=== PATIENT | male | born 1935 | race Caucasian/White ===

== ENCOUNTER 2016-09-30 10:52 | Inpatient (IN) | payer MEDICARE, BC ==
[~2016-09-30] VITALS: Ht 180.3 cm; Wt 78.0 kg
[~2016-09-30 10:52] MED LIST: BAYER CHEWABLE81 MG PO; COZAAR100 MG PO; LEVAQUIN500 MG PO; MEGACE40 MG PO; PACERONE200 MG PO
[2016-09-30 12:19] LABS: BASOPHILS 0.1 % (0-2); EOSINOPHILS 0 % (0-7); HEMATOCRIT 38.1 % (42.0-54.0); HEMOGLOBIN 12.3 g/dL (13.5-17.5); IMMATURE GRANULOCYTES 0.2 % (0-5); LYMPHOCYTES 6.8 % (15-50); MCH 31.2 pg (26.0-34.0); MCHC 32.3 g/dL (31.0-37.0); MCV 96.7 fL (80.0-100.0); MEAN PLATELET VOLUME 10.7 fL (7.4-10.4); MONOCYTES 9.4 % (2-11); NEUTROPHILS 83.5 % (40-80); PLATELET COUNT 200 10x3/uL (130-400); RBC 3.94 10x6/uL (4.20-6.10); WBC 15.3 10x3/uL (4.8-10.8)
[2016-09-30 12:26] LABS: ALBUMIN 3.2 g/dL (3.4-5.0); ANION GAP 11.4 mmol/L (8-16); BILIRUBIN - TOTAL 1.09 mg/dL (0.2-1.3); CALCIUM 9.4 mg/dL (8.5-10.1); CARBON DIOXIDE 27.5 mmol/L (21.0-32.0); CREATININE - SERUM 1.2 mg/dL (0.6-1.3); POTASSIUM - SERUM 4.9 mmol/L (3.5-5.1); PROTEIN - SERUM 7.6 g/dL (6.4-8.2)
[2016-09-30 15:28] LABS: APPEARANCE HAZY (CLEAR); BILIRUBIN NEGATIVE (NEGATIVE); COLOR YELLOW (YELLOW); GLUCOSE NEGATIVE (NEGATIVE); KETONE NEGATIVE (NEGATIVE); LEUKOCYTE ESTERASE 2+ (NEGATIVE); NITRITE POSITIVE (NEGATIVE); PROTEIN TRACE mg/dL (NEGATIVE); UROBILINOGEN NORMAL (NORMAL)
[2016-09-30 15:29] LABS: BACTERIA MANY /hpf (NONE SEEN); RED CELLS - URINE 0-5 /hpf (0-5)
--- NOTE | 2016-09-30 21:09 | NUR ---
RECIEVED PT TO FLOOR FROM ED VIA STRETCHER. ACCOMPANIED BY FAMILY AND HOSPITAL STAFF. PT IS ALERT AND ORIENTED AND ABLE TO VERBALIZE NEEDS. IV IS PATENT AND BOLUS GOING FROM ED. PT DENIES ANY PAIN AT THIS TIME. UROSTOMY NOTED TO LUQ. NO NEEDS ARE VERBALIZED AT THIS TIME. PT AND FAMILY ORIENTED TO ROOM AND USE OF CALL LIGHT. WILL CONTINUE TO MONITOR. SIDE RAILS ARE UP X 2. BED IS IN LOWEST POSITION. BED ALARM PLACED ON FOR SAFETY. CALL LIGHT IS WITHIN REACH.
--- NOTE | 2016-09-30 22:11 | NUR ---
ADMIT ASSESSMENT COMPLETED. PT PRIVIDED WITH DRAINAGE BAG FOR UROSTOMY. NO NEEDS ARE VOICED. WILL MONITOR. SIDE RAILS X 2. BED LOW. BED ALARM ON. CALL LIGHT IN REACH.
[2016-10-01] VITALS (7 sets, daily range): BP systolic 109–165; BP diastolic 42–82; Ht 180.3 cm; Wt 78.0 kg
[2016-10-01] MEDS ORDERED: MOBIC7.5 MG PO (06:02)
--- NOTE | 2016-10-01 06:38 | HP ---
PATIENT: LAWSON LA MEDICAL RECORD: [id number] ACCOUNT: [id number] LOCATION:D.[id number] : 37 ADMISSION DATE: 09/30/16 HISTORY AND PHYSICAL EXAMINATION DATE OF ADMISSION: 09/30/2016 CHIEF COMPLAINT: Lethargy. HISTORY OF PRESENT ILLNESS: The patient is an 81-year-old gentleman, who presents accompanied by his to the Emergency Room. The patient's states that last night, he began having fever and chills. He also had decrease in appetite. He awakened this morning, was to be in my office today at 11:00, but states he was too weak to present. He presented to the Emergency Room where he was evaluated by physician instructional support assistant, who found the patient to have pyelonephritis. I felt the patient should be admitted. PAST MEDICAL HISTORY: Significant that he has had arthritis. He has had prostate cancer with prostatectomy. He has had borderline diabetes, hearing loss, hyperlipidemia, hypertension, diabetes, and tachycardia. He has also had bladder cancer with ileostomy. FAMILY HISTORY: Father had malignant lung cancer. Father had diabetes. Daughter had diabetes. Son had heart transplant. Mother of pneumonia in her 80s. SOCIAL HISTORY: The patient was born in [place]. He is . He has worked as repairman in the past. ALLERGIES: He has no known drug allergies. MEDICATIONS: Include aspirin 81 mg once a day, recently treated for urinary tract infection with Macrobid 100 mg b.i.d., losartan 100 mg 1 p.o. daily, Mobic 15 mg p.o. b.i.d., Pacerone 200 mg once a day, vitamin D3 of 2000 international units once a day. REVIEW OF SYSTEMS: CONSTITUTIONAL: He denies any headaches, seizures or syncope. Denies change in visual or auditory acuity. PULMONARY: He has had a cough, but no sputum production. CARDIOVASCULAR: No chest pain, palpitation, PND, or orthopnea. GASTROINTESTINAL: No chronic nausea, vomiting, melena, or hematochezia. GENITOURINARY: No urgency, frequency or dysuria. PHYSICAL EXAMINATION: GENERAL: The patient is accompanied by his . He is alert and oriented times 3. VITAL SIGNS: His temperature is 97, respirations are 19, blood pressure 122/68. HEENT: His head is normocephalic. No lesions. Ears: TMs clear. Eyes: Pupils equal, round and reactive to light. His extraocular movements are intact. His nasal cavity, oral cavity, and oropharynx clear. NECK: Supple. There is no adenopathy. HEART: Has a regular rhythm. No murmurs, gallops or rubs. LUNGS: Clear. ABDOMEN: Soft. Bowel sounds positive. HISTORY AND PHYSICAL [id number] LAWSON LA EXTREMITIES: Lower extremities have no edema. LABORATORY DATA: The patient had a BUN of 14, creatinine is 1.2. His hemoglobin is 12.3, hematocrit is 38.1, and his white blood cell count is elevated at 15,000. His liver function is unremarkable. Urinalysis today shows a pH of 7.0, his specific gravity 1.010, 2+ leukocyte esterase; positive white blood cells in the urine, 10-25 high power field; many bacteria. DIAGNOSTIC DATA: Chest x-ray is unremarkable. ASSESSMENT: Pyelonephritis, history of ileostomy, history of hypertension, and history of bladder cancer. PLAN: The patient will be admitted. Blood cultures will be obtained as well as urine culture. He will be placed on Rocephin 1 g q.24 hours, IV hydration. Continue to evaluate. TRANSINT:[id number] Voice Confirmation ID: [id number] DOCUMENT ID: [id number] DONG CORREIA MD at 0638 CC: [id number] DICTATION DATE: 09/30/16 174 REVIEWER SALES: 09/30/16 2202 ADM [id number] [place] [address]
[2016-10-01 07:06] LABS: BASOPHILS 0 % (0-2); EOSINOPHILS 0 % (0-7); HEMATOCRIT 31.8 % (42.0-54.0); HEMOGLOBIN 10.2 g/dL (13.5-17.5); IMMATURE GRANULOCYTES 0.3 % (0-5); LYMPHOCYTES 6.6 % (15-50); MCH 31.2 pg (26.0-34.0); MCHC 32.1 g/dL (31.0-37.0); MCV 97.2 fL (80.0-100.0); MEAN PLATELET VOLUME 9.7 fL (7.4-10.4); MONOCYTES 8.7 % (2-11); NEUTROPHILS 84.4 % (40-80); RBC 3.27 10x6/uL (4.20-6.10); RDW 14.3 % (11.5-14.5)
[2016-10-01 07:15] LABS: ANION GAP 10.5 mmol/L (8-16); CALCIUM 8.1 mg/dL (8.5-10.1); CARBON DIOXIDE 25.5 mmol/L (21.0-32.0); CREATININE - SERUM 1.1 mg/dL (0.6-1.3)
[2016-10-01 07:22] LABS: PLATELET COUNT 135 10x3/uL (130-400); WBC 10.3 10x3/uL (4.8-10.8)
--- NOTE | 2016-10-01 07:28 | NUR ---
SLEEPING AT THIS TIME WITH RESPIRATIONS EVEN AND NON LABORED. AT BEDSIDE. SRX3 WITH BED LOCKED AND IN LOWEST POSITION. CALL LIGHT IN REACH, WILL CONTINUE WITH PLAN OF CARE.
--- NOTE | 2016-10-01 09:20 | NUR ---
SCHEDULED MEDICATIONS ADMINISTERED AT THIS TIME WITHOUT DIFFICULTY. BLOOD PRESSURE MEDICATION HELD DUE TO DIASTOLIC PRESSURE, SEE FLOWSHEET. AT BEDSIDE. PT ALERT AND ORIENTED. UROSTOMY APPLIANCE IN PLACE AND WITHOUT ISSUE DRAINING TO GRAVITY BAG. CALL LIGHT IN REACH, BED ALARM ON AND SRX2. ASSESSMENT PERFORMED PER FLOWSHEET. WILL CONTINUE WITH PLAN OF CARE.
--- NOTE | 2016-10-01 11:15 | NUR ---
LYING IN BED AT THIS TIME. RESPIRATIONS EVEN AND NON LABORED. DENIES NEEDS AT THIS TIME. AT BEDSIDE AND CALL LIGHT IN REACH. WILL CONTINUE WITH PLAN OF CARE.
--- NOTE | 2016-10-01 12:00 | NUR ---
ASSISTED PT TO RESTROOM X1 ASSIST. SON AND REMAIN AT BEDSIDE. INSTRUCTED THEM TO PULL THE EMERGENCY CORD OR PUSH THE CALL LIGHT WHEN HE WAS FINISHED.
--- NOTE | 2016-10-01 19:20 | NUR ---
RECIEVED SHIFT REPORT. PT IS LYING IN BED. ALERT AND ORIENTED AND ABLE TO VERBALIZE NEEDS. IV IS PATENT AND FLUIDS ARE RUNNING PER ORDER. PT HAS BEEN UP TO THE BATHROOM WITH ASSISTANCE PER FAMILY BUT THEY ALSO STATED HE WAS EXTREMELY WEAK. PT DENIES ANY PAIN AT THIS TIME. UROSTOMY CONNECTED TO DRAINAGE BAG AND STOMA WITHIN NORMAL LIMITS. NO NEEDS ARE VERBALIZED AT THIS TIME. WILL CONTINUE TO MONITOR. FAMILY IS AT THE BEDSIDE. SIDE RAILS ARE UP X 2. BED IS IN LOWEST POSITION. BED ALARM IS ON FOR SAFETY. CALL LIGHT IS WITHIN REACH.
--- NOTE | 2016-10-01 20:09 | NUR ---
SHIFT ASSESSMENT COMPLETED. ANTIBIOTIC HUNG PER ORDER. DENIES NEEDS. WILL MONITOR. SIDE RAILS X 2. BED LOW. BED ALARM ON. CALL LIGHT IN REACH.
[2016-10-02 04:55] LABS: BASOPHILS 0.2 % (0-2); EOSINOPHILS 0.8 % (0-7); HEMATOCRIT 28.6 % (42.0-54.0); HEMOGLOBIN 9.3 g/dL (13.5-17.5); IMMATURE GRANULOCYTES 0.5 % (0-5); LYMPHOCYTES 8.1 % (15-50); MCH 31.3 pg (26.0-34.0); MCHC 32.5 g/dL (31.0-37.0); MCV 96.3 fL (80.0-100.0); MEAN PLATELET VOLUME 10.2 fL (7.4-10.4); NEUTROPHILS 72.4 % (40-80); PLATELET COUNT 155 10x3/uL (130-400); RBC 2.97 10x6/uL (4.20-6.10); RDW 14.4 % (11.5-14.5)
[2016-10-02 05:18] LABS: CALC OSMOLALITY 279 mosm/kg (275-300); CARBON DIOXIDE 24.6 mmol/L (21.0-32.0); CHLORIDE - SERUM 108 mmol/L (98-107); GLUCOSE 109 mg/dL (74-106); POTASSIUM - SERUM 3.5 mmol/L (3.5-5.1); SODIUM 140 mmol/L (136-145); UREA NITROGEN 12 mg/dL (7-18); eGFR NON AFRICAN AMERICAN 76 mL/min (90-120)
--- NOTE | 2016-10-02 08:14 | NUR ---
SCHEDULED MEDICATIONS ADMINISTERED AT THIS TIME WITHOUT DIFFICULTY. ASSESSMENT PERFORMED PER FLOWSHEET. FAMILY AT BEDSIDE. IV TO RIGHT AC PATENT WITH NO S/S OF INFILTRATION PRESENT. CALL LIGHT IN REACH AND UROSTOMY TO GIBSON BAG DRAINING TO GRAVITY. SRX2 WITH BED IN LOWEST POSITION AND WHEELS LOCKED. WILL CONTINUE WITH PLAN OF CARE.
[2016-10-02 08:16] VITALS: BP 150/70
--- NOTE | 2016-10-02 10:30 | NUR ---
DENIES NEEDS AT THIS TIME. CALL LIGHT IN REACH, WILL CONTINUE WITH PLAN OF CARE.
[2016-10-02 12:22] VITALS: BP 152/61
--- NOTE | 2016-10-02 13:20 | NUR ---
PT'S IV TO RIGHT AC LEAKING AROUND INSERTION SITE. IV D/C WITH CATH TIP INTACT. FAMILY AT BEDSIDE, CALL LIGHT IN REACH. WILL CONTINUE WITH PLAN OF CARE.
[2016-10-02 16:31] VITALS: BP 136/70
--- NOTE | 2016-10-02 17:49 | NUR ---
Patient Name: LAWSON LA Admission Status: ER Accout number: [id number] Admission Date: 09-30-2016 : 1935 Admission Diagnosis: Attending: YANIRA Current LOS: 2 Anticipated DC Date: 10-04-2016 Planned Disposition: Home Primary Insurance: MEDICARE A & B Discharge Planning Comments: CM MET WITH PATIENT AND (AUGUSTINE) REGARDING D/C NEEDS AND PLANS. STATED FAMILY WILL DRIVE PATIENT HOME AT DISCHARGE. PATIENT HAS A RAMP TO ENTER HOME AND NO STAIRS INSIDE PER . PATIENT IS INDEPENDENT WITH HIS CARE AND HAS A WALKER, WHEELCHAIR, SHOWER CHAIR, AND BS COMMODE AT HOME. PATIENTS PCP IS DR. CORREIA AND PHARMACY IS [facility] IN [place]. PATIENT HAD [facility] IN THE PAST AND WOULD USE THEM IF NEEDED. CM WILL CONTINUE TO FOLLOW PATIENT WITH D/C NEEDS AND PLANS. PCP DR. BREN HUNT [facility] [phone] AUGUSTINE (SPOUSE) [phone] Reports Analyst: Jennifer Vieyra How many steps to enter\exit or inside your home? RAMP 0 * PCP DR. CORREIA 0 * Pharmacy [facility] IN [place] 0 * Preadmission Environment Home with Family 0 * ADLs Independent 0 * Equipment Bedside Commode Shower Chair Walker Wheelchair 0 * List name and contact numbers for known caregivers / representatives who currently or will assist patient after discharge: AUGUSTINE (SPOUSE) [phone] 0 * Community resources currently utilized None 0 * Additional services required to return to the preadmission environment? Yes 0 * Can the patient safely return to the preadmission environment? Yes 0 * Has this patient been hospitalized within the prior 30 days at any hospital? No 0 Grand Total: 0
--- NOTE | 2016-10-02 19:00 | NUR ---
BEDSIDE REPORT RECEIVED AND CARE OF PT ASSUMED. PT LYING IN SEMI VASQUEZ'S POSITION VISITING WITH FAMILY MEMBERS. IV IN LEFT HAND PATENT WITH D5 NS INFUSING AT 100 ML / HR. UROSTOMY PATENT WITH GIBSON BAG ATTACHED DRAINING TO GRAVITY, WITH YELLOW URINE IN COLLECTION BAG. WILL MONITOR CLOSELY.
--- NOTE | 2016-10-02 19:41 | NUR ---
GAVE HS MEDICATIONS TO INCLUDE VISTARIL PER PRN ORDER FOR ANXIETY. WILL CONTINUE TO MONITOR FOR NEEDS.
[2016-10-02 20:00] VITALS: BP 175/91
[2016-10-03] VITALS: BP 157/65
[2016-10-03 04:00] VITALS: BP 132/57
[2016-10-03 04:46] LABS: BASOPHILS 0.2 % (0-2); EOSINOPHILS 1.6 % (0-7); HEMOGLOBIN 9.4 g/dL (13.5-17.5); IMMATURE GRANULOCYTES 0.7 % (0-5); LYMPHOCYTES 8.9 % (15-50); MCH 31.2 pg (26.0-34.0); MCHC 32.4 g/dL (31.0-37.0); MCV 96.3 fL (80.0-100.0); MEAN PLATELET VOLUME 9.9 fL (7.4-10.4); MONOCYTES 14.3 % (2-11); NEUTROPHILS 74.3 % (40-80); RBC 3.01 10x6/uL (4.20-6.10); RDW 14.3 % (11.5-14.5)
[2016-10-03 04:59] LABS: PLATELET COUNT 192 10x3/uL (130-400); WBC 4.4 10x3/uL (4.8-10.8)
[2016-10-03 05:10] LABS: CALC OSMOLALITY 285 mosm/kg (275-300); CALCIUM 7.9 mg/dL (8.5-10.1); CARBON DIOXIDE 26.1 mmol/L (21.0-32.0); CHLORIDE - SERUM 110 mmol/L (98-107); CREATININE - SERUM 0.9 mg/dL (0.6-1.3); GLUCOSE 100 mg/dL (74-106); POTASSIUM - SERUM 3.2 mmol/L (3.5-5.1); SODIUM 144 mmol/L (136-145); UREA NITROGEN 10 mg/dL (7-18); eGFR NON AFRICAN AMERICAN 86 mL/min (90-120)
[2016-10-03 08:44] VITALS: BP 166/76
--- NOTE | 2016-10-03 09:26 | NUR ---
SCHEDULED MEDICATIONS ADMINISTERD AT THIS TIME WITHOUT ISSUE. AT BEDSIDE. ASSESSMENT PERFORMED PER FLOWSHEET. PT DENIES DISCOMFORT OR ANXIETY AT THIS TIME. IV TO LEFT HAND PATENT WITH NO S/S OF INFILTRATION PRESENT. BED BATH PERFORMED BY TONY SCHNEIDER. CALL LIGHT IN REACH, DENIES NEEDS AT PRESENT TIME. BED ALARM ON AND IN WORKING ORDER.
--- NOTE | 2016-10-03 11:00 | NUR ---
AWAKE AND ALERT. DENIES NEEDS AT THIS TIME. REMAINS AT BEDSIDE AND CALL LIGHT IN REACH, WILL CONTINUE WITH PLAN OF CARE.
[2016-10-03 12:24] VITALS: BP 155/71
--- NOTE | 2016-10-03 12:36 | NUR ---
NUTRITION MONITORING & EVAL CHART REVIEWED, PT TOLERATING REG DIET, 100% INTAKE BREAKFAST. WILL CONTINUE TO PROVIDE DIET, HONOR FOOD PREFERENCES. RD FOLLOWING
--- NOTE | 2016-10-03 13:20 | NUR ---
AMBULATING WITH PHYSICAL THERAPY AT THIS TIME. WILL CONTINUE WITH PLAN OF CARE.
[2016-10-03 16:31] VITALS: BP 148/74
--- NOTE | 2016-10-03 19:00 | NUR ---
BEDSIDE REPORT RECEIVED AND CARE OF PT ASSUMED. PT LYING IN SEMI VASQUEZ'S POSITION VISITING WITH FAMILY MEMBERS. IV IN LEFT HAND PATENT WITH D5 1/2 NS INFUSING AT 100 ML / HR. UROSTOMY DRAINING TO GRAVITY WITH YELLOW URINE IN COLLECTION BAG. WILL MONITOR CLOSLEY FOR NEEDS. CALL LIGHT WITHIN REACH.
[2016-10-03 20:00] VITALS: BP 164/67
--- NOTE | 2016-10-03 20:23 | NUR ---
HS MEDICATIONS GIVEN TO INCLUDE VISTARIL PER REQUEST FOR REST. WILL CONTINUE TO MONITOR FOR NEEDS.
--- NOTE | 2016-10-03 23:41 | NUR ---
PT RESTING QUIETLY ON RIGHT SIDE WITH UNLABORED BREATHING. BED ALARM IN USE. WILL CONTINUE TO MONITOR FOR NEEDS.
[2016-10-04] VITALS: BP 165/73
[2016-10-04 02:59] LABS: BASOPHILS 0.4 % (0-2); EOSINOPHILS 2.7 % (0-7); HEMATOCRIT 28.4 % (42.0-54.0); HEMOGLOBIN 9.1 g/dL (13.5-17.5); IMMATURE GRANULOCYTES 0.9 % (0-5); LYMPHOCYTES 13.2 % (15-50); MCH 30.8 pg (26.0-34.0); MCV 96.3 fL (80.0-100.0); MEAN PLATELET VOLUME 9.8 fL (7.4-10.4); MONOCYTES 12.8 % (2-11); PLATELET COUNT 228 10x3/uL (130-400); RBC 2.95 10x6/uL (4.20-6.10); RDW 14.4 % (11.5-14.5); WBC 4.5 10x3/uL (4.8-10.8)
[2016-10-04 03:18] LABS: CALC OSMOLALITY 285 mosm/kg (275-300); CALCIUM 8.2 mg/dL (8.5-10.1); CARBON DIOXIDE 27.9 mmol/L (21.0-32.0); CHLORIDE - SERUM 111 mmol/L (98-107); GLUCOSE 99 mg/dL (74-106); POTASSIUM - SERUM 3.5 mmol/L (3.5-5.1); SODIUM 144 mmol/L (136-145); UREA NITROGEN 10 mg/dL (7-18); eGFR NON AFRICAN AMERICAN 76 mL/min (90-120)
[2016-10-04 04:00] VITALS: BP 161/75
[2016-10-04] MEDS ORDERED: AMOXICILLIN500 M1 PO (07:42)
--- NOTE | 2016-10-04 08:00 | NUR ---
AWAKE AND ALERT. ORIENTED X3. NO C/O AT THIS TIME. LUNGS ARE CLEAR BUT DIMINISHED THROUGHOUT. PRODUCTIVE COUGH NOTED PER FAMILY WITH CLEAR SPUTUM. SKIN IS INTACT WITHOUT REDNESS. IV TO LEFT HAND PATENT WITHOUT REDNESS AT INSERTION SITE. UROSTOMY PATENT WITHOUCLEAR YELLOW URINE. DENIES NEEDS.
--- NOTE | 2016-10-04 08:26 | NUR ---
CM REASSESSMENT NOTE: PATIENT IS DISCHARGING TODAY-FAMILY DRIVING HIM HOME. PATIENT AND FAMILY CHOSE [facility] AND SIGNED THE GIORGIO FORM. CM FAXING REFERRAL. PATIENT HAD NO OTHER NEEDS FOR DISCHARGE. D/C IMM SERVED
[2016-10-04 09:04] VITALS: BP 189/75
--- NOTE | 2016-10-04 09:30 | NUR ---
IV LEAKING AT THIS TIME. D/C WITH CATHETER INTACT.
--- NOTE | 2016-10-04 11:21 | NUR ---
DISCHARGED TO HOME AMBULATORY WITH FAMILY. DISCHARGE INSTRUCTIONS GIVEN BOTH VERBALLY AND WRITTEN. ALL QUESTIONS ANSWERED. PATIENT AND VERBALIZED UNDERSTANDING OF SAME. NEW PRESCRIPTIONS EFAXED TO PHARMACY OF CHOICE.
== END 2016-10-04 11:20 | disposition home or self-care (01) | DRG 690 ==
LOC: D.ER 10:52 → D.MS 17:51 → OBSVTIME 17:51 → D.SDCHOLD 17:51 → D.ER 17:51 → D.MS 18:36
PROVIDERS: Emergency Medicine; ADMIT Family Medicine
DX: N12 Tubulo-interstitial nephritis, not specified as acute or chronic (principal); E78.5 Hyperlipidemia, unspecified; I10 Essential (primary) hypertension; Z85.46 Personal history of malignant neoplasm of prostate; E11.9 Type 2 diabetes mellitus without complications

== ENCOUNTER 2016-12-07 16:17 | Inpatient (IN) | payer MEDICARE, BC ==
[~2016-12-07] VITALS: Ht 180.3 cm; Wt 77.3 kg
[~2016-12-07 16:17] MED LIST changes: +AMOXICILLIN500 M1 PO; +MOBIC7.5 MG PO
[2016-12-07 16:50] LABS: APPEARANCE TURBID (CLEAR); BACTERIA MANY /hpf (NONE SEEN); BILIRUBIN NEGATIVE (NEGATIVE); COLOR YELLOW (YELLOW); EPITHELIAL CELLS 0-5 /hpf (0-5); GLUCOSE NEGATIVE (NEGATIVE); KETONE NEGATIVE (NEGATIVE); LEUKOCYTE ESTERASE 2+ (NEGATIVE); MUCUS <1+ /lpf (NONE SEEN); NITRITE NEGATIVE (NEGATIVE); PROTEIN 1+ mg/dL (NEGATIVE); UROBILINOGEN NORMAL (NORMAL); WHITE CELLS - URINE >50 /hpf (0-5)
[2016-12-07 16:53] LABS: BASOPHILS 0.2 % (0-2); EOSINOPHILS 0.5 % (0-7); HEMATOCRIT 32.3 % (42.0-54.0); HEMOGLOBIN 10.5 g/dL (13.5-17.5); IMMATURE GRANULOCYTES 0.5 % (0-5); MCH 30.4 pg (26.0-34.0); MCHC 32.5 g/dL (31.0-37.0); MCV 93.6 fL (80.0-100.0); MEAN PLATELET VOLUME 9.5 fL (7.4-10.4); NEUTROPHILS 77.8 % (40-80); PLATELET COUNT 241 10x3/uL (130-400); RBC 3.45 10x6/uL (4.20-6.10); RDW 13.8 % (11.5-14.5)
[2016-12-07 17:05] LABS: ALBUMIN 2.8 g/dL (3.4-5.0); ANION GAP 16.1 mmol/L (8-16); BILIRUBIN - TOTAL 0.5 mg/dL (0.2-1.3); CALCIUM 9.2 mg/dL (8.5-10.1); CARBON DIOXIDE 23.4 mmol/L (21.0-32.0); CREATININE - SERUM 1.4 mg/dL (0.6-1.3); POTASSIUM - SERUM 4.5 mmol/L (3.5-5.1); PROTEIN - SERUM 7.3 g/dL (6.4-8.2)
[2016-12-07] MEDS ORDERED: NORVASC5 MG PO (19:46)
[2016-12-07 20:00] VITALS: BP 147/66
--- NOTE | 2016-12-07 20:20 | NUR ---
REC'D PT TO ROOM 2134 ACCOMPAINED BY ER STAFF AND FAMILY. AWAKE AND ALERT. RESP EVEN AND UNLABORED WITH NO DISTRESS NOTED. CAN VOICE NEEDS AND WANTS. PT IS [place]. DENIES ANY PAIN OR DISCOMFORT AT THIS TIME. HAS IV NOTED TO LEFT AC. ASSESSMENT COMPLETED. FAMILY AND C/L IN REACH AT BEDSIDE.
--- NOTE | 2016-12-08 | NUR ---
REST WELL THROUGH OUT THE NIGHT WITH NO C/O NOTED OR VOICED. C/L IN REACH AT BEDSIDE.
--- NOTE | 2016-12-08 02:16 | NUR ---
PT LYING IN BED, EYES CLOSED, RESPIRATIONS EVEN AND UNLABORED. I AGREE WITH PHYSICIAN PRACTICE MANAGER'S PLAN OF CARE. CONTINUE TO MONITOR CLOSELY.
[2016-12-08 04:00] VITALS: BP 133/79
[2016-12-08 05:28] VITALS: Ht 180.3 cm; Wt 77.3 kg
--- NOTE | 2016-12-08 07:28 | NUR ---
AM ROUNDING DONE WITH PATIENT LAYING ON BACK AT 10 DEGREES, APPEARING TO BE ASLEEP. RESP ARE EVEN AND NON LABORED. CIERRA ALARM ON AND IN USE. ON ROOM AIR. LEFT AC SEEN WITH NS INFUSING AT 150 CC/HR. WILL CPOC.
[2016-12-08 08:38] VITALS: BP 125/71
--- NOTE | 2016-12-08 08:51 | NUR ---
DR MORALES HERE TO SEE PATIENT AND FEMALE MEMBER IN ROOM. IV FLUIDS DECREASED TO 75 CC/HR ORDERED. PATIENT DENIES ANY NEEDS.
[2016-12-08 12:36] VITALS: BP 120/66
--- NOTE | 2016-12-08 14:19 | NUR ---
URINE SENT TO LAB ORDERED.
[2016-12-08 14:27] LABS: APPEARANCE CLEAR (CLEAR); BACTERIA MODERATE /hpf (NONE SEEN); BILIRUBIN NEGATIVE (NEGATIVE); COLOR YELLOW (YELLOW); EPITHELIAL CELLS 0-5 /hpf (0-5); GLUCOSE NEGATIVE (NEGATIVE); KETONE NEGATIVE (NEGATIVE); LEUKOCYTE ESTERASE 1+ (NEGATIVE); NITRITE NEGATIVE (NEGATIVE); PROTEIN NEGATIVE (NEGATIVE); UROBILINOGEN NORMAL (NORMAL)
--- NOTE | 2016-12-08 15:41 | NUR ---
BILATERAL SCD'S PLACED ON ORDERED.
[2016-12-08 16:23] VITALS: BP 128/74
[2016-12-08 20:00] VITALS: BP 116/65
--- NOTE | 2016-12-09 03:12 | NUR ---
CALL LIGHT IN REACH, WILL CONTINUE WITH PLAN OF CARE.
[2016-12-09 04:00] VITALS: BP 159/85
[2016-12-09 05:00] LABS: BASOPHILS 0.1 % (0-2); EOSINOPHILS 0.4 % (0-7); HEMOGLOBIN 10.1 g/dL (13.5-17.5); IMMATURE GRANULOCYTES 0.6 % (0-5); LYMPHOCYTES 4.2 % (15-50); MCHC 32.6 g/dL (31.0-37.0); MCV 95.1 fL (80.0-100.0); MONOCYTES 13.6 % (2-11); NEUTROPHILS 81.1 % (40-80); PLATELET COUNT 232 10x3/uL (130-400); RBC 3.26 10x6/uL (4.20-6.10); WBC 11.2 10x3/uL (4.8-10.8)
[2016-12-09 05:16] LABS: ALBUMIN 2.3 g/dL (3.4-5.0); ANION GAP 13.4 mmol/L (8-16); BILIRUBIN - TOTAL 0.3 mg/dL (0.2-1.3); CALCIUM 8.7 mg/dL (8.5-10.1); CARBON DIOXIDE 23.5 mmol/L (21.0-32.0); CREATININE - SERUM 1.1 mg/dL (0.6-1.3); POTASSIUM - SERUM 3.9 mmol/L (3.5-5.1); PROTEIN - SERUM 5.7 g/dL (6.4-8.2)
--- NOTE | 2016-12-09 07:10 | NUR ---
AM ROUNDS - PT RESTING QUIETLY, FAMILY AT BEDSIDE. RR EVEN AND UNLABORED, FAMIY AND PT DENY NEEDS AT THIS TIME. INTRODUCED SELF AND PLACE NAME ON WHITE BOARD. BED IN LOWEST POSTION, CALL YOUNG IN REACH, WILL CTM.
[2016-12-09 08:00] VITALS: BP 129/68
--- NOTE | 2016-12-09 10:07 | NUR ---
REHAB PRESCREENING Rehab referral received and chart reveiwed. We will continue to follow this patient for PT evaluation. Thank you for this referral! Oma Green, LINER REPLACER Rehab Dental Prosthetist
--- NOTE | 2016-12-09 10:48 | NUR ---
ASSESSMENT COMPELTE, A&O, RESPERATONS EVEN ON RA. PT VERY H.O.H. IV TO LEFT AC WITH NS INFUSING AT 75 CC/HR. SITE CLEAN AND DRY. RIGHT SIDE UROSTOMY DRAINING TO GIBSON BAG. PT DENIES PAIN OR NEEDS, BED LOW, CL IN REACH.
[2016-12-09 12:00] VITALS: BP 117/63
[2016-12-09 16:41] VITALS: BP 128/62
--- NOTE | 2016-12-09 17:12 | NUR ---
Patient Name: LAWSON LA Encounter No: [id number] : 1935 Primary Insurance: MEDICARE A & B Anticipated DC Date: 12-10-2016 Planned Disposition: Home with Home Health External Planned Provider: [facility] DISCHARGE PLANNING NOTE: * Is the patient Alert and Oriented? Yes 0 * How many steps to enter\exit or inside your home? RAMP 0 * PCP DR. CORREIA 0 * Pharmacy [facility] [place] 0 * Preadmission Environment Home with Family 0 * ADLs Partial Dependent 0 * Partial ADLs (Assistance needed) Medication Management 0 * Equipment Rolling Walker Wheelchair 0 * Other Equipment NO MEDICAL EQUIPMENT PROVIDER PREFERENCE 0 * List name and contact numbers for known caregivers / representatives who currently or will assist patient after discharge: AUGUSTINE LA, SPOUSE, 0 * Community resources currently utilized Home Health 0 * Please name any agencies selected above. [facility] 0 * Additional services required to return to the preadmission environment? Yes * Can the patient safely return to the preadmission environment? Yes 0 * Has this patient been hospitalized within the prior 30 days at any hospital? Yes 0 CM MET WITH PT, SPOUSE AND ADULT CHILDREN IN ROOM TO DISCUSS DISCHARGE PLANNING AND NEEDS. PT REPORTS LIVING AT HOME INDEPENDENTLY WITH SPOUSE; PT'S SPOUSE REPORTS SHE ARRANGES PT'S MEDICATIONS IN PILL MINDER FOR PT. PT HAS ROLLING WALKER AND WHEELCHAIR WITH NO MEDICAL EQUIPMENT PROVIDER PREFERENCE. PT HAS [facility] FOR NURSING, WAS JUST DISCHARGED BY THE HOME THERAPIST PRIOR TO HOSPITALIZATION. CM DISCUSSED AVAILABILITY OF HOME HEALTH, REHAB SERVICES AND MEDICAL EQUIPMENT. PT REPORTS HE WILL NOT GO TO REHAB. CM DISCUSSED INPATIENT REHAB, PT DOES NOT WANT EVALUATED AND DOES NOT WANT TO SPEAK TO ANYONE FROM REHAB. CM DISCUSSED [facility], PT REFUSED. PT WILL ACCEPT [facility]. PT'S SPOUSE REPORTS SHE WILL PICK PT FOR DISCHARGE HOME. PT'S SPOUSE REPORTS PT NORMALLY GOES HOME AND USES WHEELCHAIR TO GET AROUND THE HOUSE AFTER HOSPITALIZATION AND AFTER A COUPLE OF WEEKS TRANSITIONS TO THE WALKER WITH WHEELS AND SEAT. CM PROVIDED CM CONTACT INFORMATION TO PT AND FAMILY IN CASE PT CHANGES MIND IN REGARDS TO GOING TO REHAB PRIOR TO RETURNING HOME. IMPORTANT MESSAGE FROM MEDICARE PROVIDED AND DISCUSSED. PT REFUSES REHAB SERVICES INPATIENT OR [facility]. PT WILL ACCEPT HOME HEALTH. DENIES FURTHER NEEDS AT THIS TIME. CM TO RESUME HOME HEALTH WITH [facility] FOR DISCHARGE HOME, CALL [facility] AT [phone], FAX DISCHARGE INFORMATION TO [facility] AT [phone]. Mitchell Valenzuela, CASE MANAGEMENT
--- NOTE | 2016-12-09 18:33 | NUR ---
PT RESTING QUIETLY, FAMILY AT BEDSIDE. DENIES NEEDS AT THIS TIME. WILL GIVE REPORT ON PT CONDITION FOR THE DAY.
--- NOTE | 2016-12-09 19:48 | NUR ---
ASSESSMENT COMPELTE, A&O. RESPERATIONS EVEN ON RA. PT VERY H.O.H. IV TO LEFT AC WITH NS INFUSING AT 75 CC/HR. SITE CLEAN AND DRY. RIGHT UROSTOMY DRAINING TO GIBSON BAG. SCDS IN PLACE TO BILATERAL LOWER EXTREMITES. PT DENIES PAIN OR NEEDS, BED LOW, CL IN REACH.
[2016-12-09 20:00] VITALS: BP 135/663; BP 149/71
--- NOTE | 2016-12-09 21:20 | NUR ---
RESPOSTIONED IN BED FOR COMFORT, BED LOW, CL IN REACH.
[2016-12-10] VITALS: BP 149/71
--- NOTE | 2016-12-10 00:33 | NUR ---
SCRUBBER SYSTEM ATTENDANT AT BEDSIDE TO OBTAIN VITALS, CALL LIGHT IN REACH. WILL CONTINUE WITH PLAN OF CARE.
--- NOTE | 2016-12-10 00:33 | NUR ---
SKIRT CLIPPER AT BEDSIDE TO OBTAIN VITALS, CALL LIGHT IN REACH. WILL CONTINUE WITH PLAN OF CARE.
--- NOTE | 2016-12-10 02:01 | NUR ---
SECOND IV SITED TO LEFT FOREARM, 22 GAUGE, FIRST ATTEMPT, PT TOLERATED WELL. IV TO LEFT AC INTACT, PT KEEPS BENDING ARM WHILE ASLEEP AND IV PUMP ALARMS PT SIDE OCCLUDED.
[2016-12-10 04:00] VITALS: BP 161/69
[2016-12-10 04:13] LABS: BASOPHILS 0.2 % (0-2); EOSINOPHILS 1.3 % (0-7); HEMATOCRIT 28.6 % (42.0-54.0); HEMOGLOBIN 9.3 g/dL (13.5-17.5); IMMATURE GRANULOCYTES 0.6 % (0-5); LYMPHOCYTES 9.6 % (15-50); MCH 30.4 pg (26.0-34.0); MCHC 32.5 g/dL (31.0-37.0); MCV 93.5 fL (80.0-100.0); MEAN PLATELET VOLUME 9.8 fL (7.4-10.4); MONOCYTES 12.6 % (2-11); NEUTROPHILS 75.7 % (40-80); PLATELET COUNT 248 10x3/uL (130-400); RBC 3.06 10x6/uL (4.20-6.10)
[2016-12-10 04:15] LABS: WBC 6.3 10x3/uL (4.8-10.8)
[2016-12-10 04:23] LABS: CALC OSMOLALITY 278 mosm/kg (275-300); CALCIUM 8.1 mg/dL (8.5-10.1); CARBON DIOXIDE 22.7 mmol/L (21.0-32.0); CHLORIDE - SERUM 108 mmol/L (98-107); GLUCOSE 91 mg/dL (74-106); POTASSIUM - SERUM 3.6 mmol/L (3.5-5.1); SODIUM 139 mmol/L (136-145); eGFR NON AFRICAN AMERICAN 76 mL/min (90-120)
[2016-12-10 04:24] LABS: UREA NITROGEN 14 mg/dL (7-18)
--- NOTE | 2016-12-10 11:10 | NUR ---
Rehab Note- Spoke with the patient's due to the patient resting comfortably. Stated that the patient is adamant about discharging home with [facility] and not doing acute rehab stay. Informed that if patient is unable to well at home after discharge that the patient could be evaluated from home for an IRF stay. Spoke with MARINO Trujillo and informed him of conversation with . Thank you for this referral! Jaleesa Staton RN Clinical Liaison, [facility] Rehab
[2016-12-10 13:08] VITALS: BP 161/70
[2016-12-10 13:09] VITALS: BP 162/66
--- NOTE | 2016-12-10 13:10 | NUR ---
THIS AM PATIENT HAS BEEN VISITING WITH FAMILY. HAS HAD A VERY LARGE BM. UREOSTOMY DRAINING WELL WITH CONCENTRATED URINE. SCDS ON AND REMOVED FOR SKIN ASSESSMENT. CIERRA PAD ON AND ALARM ON. WILL CONTINUE TO MONITOR.
[2016-12-10 16:30] VITALS: BP 156/60
--- NOTE | 2016-12-10 19:30 | NUR ---
ALERT/AWAKE WATCHING TV. IV IN L FA WITH NS INFUSING AT 75ML/HR. HAS A UROSTOMY ON RIGHT SIDE DRAINING INTO GIBSON BAG. SCD'S ARE ON. ORIENTED TO CALL LIGHT FOR ANY NEEDS.
[2016-12-10 20:00] VITALS: BP 151/64
--- NOTE | 2016-12-11 03:30 | NUR ---
VENEER JOINTER PRESENT IN ROOM TAKING VS. REQUESTED MORE ICE WATER. DENIES ANY DISCOMFORTS.
[2016-12-11 04:00] VITALS: BP 176/74
[2016-12-11 04:57] LABS: BASOPHILS 0.2 % (0-2); EOSINOPHILS 1.9 % (0-7); HEMATOCRIT 27.2 % (42.0-54.0); HEMOGLOBIN 8.8 g/dL (13.5-17.5); IMMATURE GRANULOCYTES 0.9 % (0-5); LYMPHOCYTES 6.3 % (15-50); MCH 30.6 pg (26.0-34.0); MCHC 32.4 g/dL (31.0-37.0); MCV 94.4 fL (80.0-100.0); MEAN PLATELET VOLUME 9.2 fL (7.4-10.4); MONOCYTES 16.7 % (2-11); PLATELET COUNT 235 10x3/uL (130-400); RBC 2.88 10x6/uL (4.20-6.10)
[2016-12-11 04:59] LABS: WBC 4.3 10x3/uL (4.8-10.8)
[2016-12-11 05:17] LABS: CALC OSMOLALITY 283 mosm/kg (275-300); CALCIUM 8.3 mg/dL (8.5-10.1); CARBON DIOXIDE 22.3 mmol/L (21.0-32.0); CHLORIDE - SERUM 111 mmol/L (98-107); CREATININE - SERUM 0.9 mg/dL (0.6-1.3); GLUCOSE 93 mg/dL (74-106); POTASSIUM - SERUM 3.7 mmol/L (3.5-5.1); SODIUM 143 mmol/L (136-145); UREA NITROGEN 11 mg/dL (7-18); eGFR NON AFRICAN AMERICAN 86 mL/min (90-120)
[2016-12-11] MEDS ORDERED: PROTONIX40 MG PO (07:01)
[2016-12-11] MEDS ORDERED: LEVAQUIN750 MG PO (07:01)
--- NOTE | 2016-12-11 07:55 | NUR ---
AM ROUNDS - PT IS AWAKE IN BED WITH IV TO LEFT FA, NE AT 75CC/HR. SCDS ON, YELLOW BAND ON, SIDE RAILS UP X2. BED IN LOWEST POSITION. PT IS ON RA. HARD OF HEARING. NO NEEDS AT THIS TIME. WILL CONTINUE TO MONITOR
--- NOTE | 2016-12-11 09:43 | NUR ---
Patient Name: LAWSON LA Encounter No: [id number] : 1935 Primary Insurance: MEDICARE A & B Anticipated DC Date: 12-11-2016 Planned Disposition: Home with Home Health External Planned Provider: [facility] DCP follow-up note: CM RECEIVED DISCHARGE ORDER, SPOKE TO PT AND SPOUSE IN ROOM; CM OFFERED REHAB SERVICES TO PT WHO AGAIN REFUSED, REPORTS HE IS GOING HOME. PT WILL ACCEPT HOME HEALTH. PT'S SPOUSE IN AGREEMENT WITH DISCHARGE PLAN FOR HOME HEALTH AND GOING HOME TODAY. FAMILY HERE TO TRANSPORT PT HOME AT DISCHARGE. MARINO CALLED [facility] AT [phone], SPOKE TO [facility] WHO REPORTS THEY WILL HAVE TO READMIT PT TOMORROW, CM FAXED DISCHARGE INFORMATION TO [facility] AT [phone]. PT AND SPOUSE NOTIFIED. Mitchell Valenzuela, CASE MANAGEMENT
[2016-12-11 10:02] VITALS: BP 182/74
--- NOTE | 2016-12-11 10:36 | NUR ---
MORNING MEDICATION GIVEN. PT TOLERATED WELL. WILL CONTINUE TO MONITOR
== END 2016-12-11 11:25 | disposition home health service (06) | DRG 690 ==
LOC: D.ER 16:17 → D.M2 17:34
PROVIDERS: Family Medicine; ADMIT Family Medicine
DX: N39.0 Urinary tract infection, site not specified (principal); Z86.73 Personal history of transient ischemic attack (TIA), and cerebral infarction without residual deficits; I10 Essential (primary) hypertension; I48.91 Unspecified atrial fibrillation; Z87.891 Personal history of nicotine dependence

== ENCOUNTER 2017-01-18 11:43 | Inpatient (IN) | payer MEDICARE, BC ==
[~2017-01-18] VITALS: Ht 180.3 cm; Wt 74.8 kg
[~2017-01-18 11:43] MED LIST changes: +LEVAQUIN750 MG PO; +NORVASC5 MG PO; +PROTONIX40 MG PO
[2017-01-18 12:10] LABS: APPEARANCE CLOUDY (CLEAR); BILIRUBIN 1+ (NEGATIVE); COLOR YELLOW (YELLOW); GLUCOSE NEGATIVE (NEGATIVE); KETONE NEGATIVE (NEGATIVE); LEUKOCYTE ESTERASE TRACE (NEGATIVE); NITRITE NEGATIVE (NEGATIVE); PROTEIN TRACE mg/dL (NEGATIVE); UROBILINOGEN NORMAL (NORMAL)
[2017-01-18 12:10] LABS: BASOPHILS 0 % (0-2); EOSINOPHILS 0.1 % (0-7); HEMATOCRIT 31.6 % (42.0-54.0); HEMOGLOBIN 10.5 g/dL (13.5-17.5); IMMATURE GRANULOCYTES 0.4 % (0-5); LYMPHOCYTES 1.5 % (15-50); MCHC 33.2 g/dL (31.0-37.0); MCV 93.2 fL (80.0-100.0); MEAN PLATELET VOLUME 9.6 fL (7.4-10.4); MONOCYTES 10.4 % (2-11); NEUTROPHILS 87.6 % (40-80); PLATELET COUNT 139 10x3/uL (130-400); RBC 3.39 10x6/uL (4.20-6.10); RDW 14.6 % (11.5-14.5)
[2017-01-18 12:14] LABS: AMORPHOUS SEDIMENT <1+ /lpf (NONE SEEN); BACTERIA MANY /hpf (NONE SEEN); EPITHELIAL CELLS 0-5 /hpf (0-5); HYALINE CAST OCC /lpf (NONE SEEN); RED CELLS - URINE 0-5 /hpf (0-5); YEAST >1+ WITH HYPHAE /hpf (NONE SEEN)
[2017-01-18 12:20] LABS: ALBUMIN 2.6 g/dL (3.4-5.0); BILIRUBIN - TOTAL 0.6 mg/dL (0.2-1.3); CALCIUM 8.5 mg/dL (8.5-10.1); CARBON DIOXIDE 23.7 mmol/L (21.0-32.0); CREATININE - SERUM 1.4 mg/dL (0.6-1.3); POTASSIUM - SERUM 3.7 mmol/L (3.5-5.1); PROTEIN - SERUM 6.6 g/dL (6.4-8.2)
--- NOTE | 2017-01-18 14:40 | NUR ---
PATIENT TO ROOM AT THIS TIME. IV INTACT. NO COMPLAINTS. CALL LIGHT WITHIN REACH. FAMILY AT BEDSIDE.
[2017-01-18 15:41] VITALS: BMI 23.0
[2017-01-18] MEDS ORDERED: BACTRIM DS TABL1 TAB PO (16:09)
[2017-01-18] MEDS ORDERED: FERROUS SULFAT325 MG PO (16:11)
--- NOTE | 2017-01-18 16:30 | NUR ---
PATIENT IN BED WITH EYES CLOSED RESTING QUIETLY AT THIS TIME. NO COMPLAINTS OR SIGNS OF DISTRESS. NEPHROSTOMY INTACT. CALL LIGHT WITHIN REACH. FAMILY AT BEDSIDE.
--- NOTE | 2017-01-18 17:15 | NUR ---
PATIENT SITTING UP IN BED EATING ASSISTED BY . NO COMPLAINTS OR SIGNS OF DISTRESS. CALL LIGHT WITHIN REACH.
--- NOTE | 2017-01-18 18:10 | NUR ---
PATIENT BACK TO SLEEP AT THIS TIME. EYES CLOSED RESTING QUIETLY. FAMILY AT BEDSIDE. CALL LIGHT WITHIN REACH.
[2017-01-18 20:00] VITALS: BP 107/48
[2017-01-19] VITALS: BP 111/56
[2017-01-19 04:00] VITALS: BP 126/64
--- NOTE | 2017-01-19 07:00 | NUR ---
REPORT RECIEVED ASSUMED CARE. PATIENT IN BED WITH IV INTACT. NO COMPLAINTS. FAMILY AT BEDSIDE. CALL LIGHT WITHIN REACH.
[2017-01-19 09:40] VITALS: BP 134/66
[2017-01-19 12:46] VITALS: BP 132/68
--- NOTE | 2017-01-19 14:30 | NUR ---
PATIENT SITTING UP IN BED EYES OPEN WITH NO COMPLAINTS OR SIGNS OF DISTRESS. CALL LIGHT WITHIN REACH. FAMILY AT BEDSIDE.
[2017-01-19 16:26] VITALS: BP 130/66
--- NOTE | 2017-01-19 16:53 | NUR ---
PATIENT LAYING IN BED WITH EYES CLOSED RESTING QUIETLY. IV INTACT. NO COMPLAINTS. CALL LIGHT WITHIN REACH. FAMILY AT BEDSIDE.
[2017-01-19 20:00] VITALS: BP 133/69
[2017-01-20] VITALS: BP 145/70
[2017-01-20 03:11] LABS: BASOPHILS 0.2 % (0-2); EOSINOPHILS 1.2 % (0-7); HEMOGLOBIN 9.1 g/dL (13.5-17.5); IMMATURE GRANULOCYTES 0.6 % (0-5); LYMPHOCYTES 5.3 % (15-50); MCH 30.5 pg (26.0-34.0); MCHC 32.5 g/dL (31.0-37.0); MEAN PLATELET VOLUME 9.5 fL (7.4-10.4); MONOCYTES 11.5 % (2-11); NEUTROPHILS 81.2 % (40-80); RBC 2.98 10x6/uL (4.20-6.10)
[2017-01-20 03:12] LABS: PLATELET COUNT 178 10x3/uL (130-400); WBC 5.1 10x3/uL (4.8-10.8)
[2017-01-20 03:29] LABS: ALBUMIN 2.1 g/dL (3.4-5.0); ANION GAP 12.7 mmol/L (8-16); BILIRUBIN - TOTAL 0.3 mg/dL (0.2-1.3); CALCIUM 8.5 mg/dL (8.5-10.1); CARBON DIOXIDE 23.1 mmol/L (21.0-32.0); CREATININE - SERUM 1.1 mg/dL (0.6-1.3); POTASSIUM - SERUM 3.8 mmol/L (3.5-5.1); PROTEIN - SERUM 5.9 g/dL (6.4-8.2)
[2017-01-20 04:00] VITALS: BP 151/67
[2017-01-20 08:09] VITALS: BP 162/71
--- NOTE | 2017-01-20 08:25 | NUR ---
ASSESSMEN TPER FLOW SHEET.PT WITHOUT DISTRESS.DENIES NEEDS AT PRESENT. AND DAUGHTER AT BEDSIDE.CALL LIGHT IN REACH.
--- NOTE | 2017-01-20 11:26 | NUR ---
FALL PREVENTION INITIATED WITH CIERRA MAT IN PLACE AND FUNCTIONING.YELLOW BAND AND DOOR MARKER.CALL LIGHT IN REACH
--- NOTE | 2017-01-20 11:57 | NUR ---
AT BEDSIDE.FALL PREVENTION IN PLACE.MONITOR FOR NEEDS
[2017-01-20 12:07] VITALS: BP 167/68
[2017-01-20 13:27] VITALS: Ht 180.3 cm; Wt 74.8 kg
--- NOTE | 2017-01-20 15:43 | NUR ---
REMAINS WITHOUT DISTRESS.FALL PREVENTION IN PLACE.FAMILY AT BEDSIDE
[2017-01-20 16:06] VITALS: BP 158/68
[2017-01-20 19:00] VITALS: BP 142/50
--- NOTE | 2017-01-20 21:23 | NUR ---
REC'D LYING IN BED RESTING. ALERT AND ORIENTED X3. DENIED PAIN AT THIS TIME. DENIED FURTHER NEEDS AT THIS TIME. INSTRUCTED TO CALL IF NEEDED ANYTHING. VERBALIZED UNDERSTANDING. WILL ADMIN PM/AM MEDS PRESCRIBED. WILL CONT TO MONITOR. BED LOW, LOCKED, CALL LIGHT IN REACH, ALARM ON.
[2017-01-21] VITALS: BP 175/70
--- NOTE | 2017-01-21 02:00 | NUR ---
PT IN BED WITH NO DISTRESS. RESPIRATIONS EVEN AND UNLABORED. SIDE RAILS X 2. BED IS LOW. CALL LIGHT IN REACH.
[2017-01-21 04:00] VITALS: BP 174/86
[2017-01-21 04:54] LABS: BASOPHILS 0.2 % (0-2); EOSINOPHILS 1.7 % (0-7); HEMATOCRIT 29.2 % (42.0-54.0); HEMOGLOBIN 9.3 g/dL (13.5-17.5); IMMATURE GRANULOCYTES 0.8 % (0-5); LYMPHOCYTES 7.8 % (15-50); MCH 30.2 pg (26.0-34.0); MCHC 31.8 g/dL (31.0-37.0); MCV 94.8 fL (80.0-100.0); MONOCYTES 10.9 % (2-11); NEUTROPHILS 78.6 % (40-80); RBC 3.08 10x6/uL (4.20-6.10); WBC 5.2 10x3/uL (4.8-10.8)
[2017-01-21 04:56] LABS: PLATELET COUNT 225 10x3/uL (130-400)
[2017-01-21 05:02] LABS: CALC OSMOLALITY 276 mosm/kg (275-300); CALCIUM 8.3 mg/dL (8.5-10.1); CARBON DIOXIDE 23.8 mmol/L (21.0-32.0); CHLORIDE - SERUM 109 mmol/L (98-107); CREATININE - SERUM 0.9 mg/dL (0.6-1.3); GLUCOSE 80 mg/dL (74-106); POTASSIUM - SERUM 4.1 mmol/L (3.5-5.1); SODIUM 140 mmol/L (136-145); UREA NITROGEN 11 mg/dL (7-18); eGFR NON AFRICAN AMERICAN 86 mL/min (90-120)
--- NOTE | 2017-01-21 08:05 | NUR ---
ASSESSMENT PER FLOW SHEET.PT WITHOUT DISTRESS.CONFUSED THIS AM. AT BEDSIDE AND FALL PREVENTION IN PLACE.DENIES NEEDS AT PRESENT.CALL LIGHT IN REACH
[2017-01-21 08:58] VITALS: BP 169/72
[2017-01-21 13:07] VITALS: BP 158/68
[2017-01-21 15:41] VITALS: BP 158/68
--- NOTE | 2017-01-21 16:52 | NUR ---
FAMILY AT BEDSIDE.PT REMAINS WITHOUT CHANGE FROM INITIAL SHIFT ASSESSMENT.HE IS LESS CONFUSED THIS AFTERNOON.CONT PLAN OF CARE
[2017-01-22] VITALS: BP 165/69
[2017-01-22 04:00] VITALS: BP 161/93
[2017-01-22 04:43] LABS: BASOPHILS 0.2 % (0-2); EOSINOPHILS 1.6 % (0-7); HEMATOCRIT 32.3 % (42.0-54.0); HEMOGLOBIN 10.5 g/dL (13.5-17.5); IMMATURE GRANULOCYTES 0.9 % (0-5); MCH 30.7 pg (26.0-34.0); MCHC 32.5 g/dL (31.0-37.0); MCV 94.4 fL (80.0-100.0); MEAN PLATELET VOLUME 9.6 fL (7.4-10.4); MONOCYTES 11.4 % (2-11); NEUTROPHILS 75.9 % (40-80); PLATELET COUNT 276 10x3/uL (130-400); RBC 3.42 10x6/uL (4.20-6.10); RDW 14.9 % (11.5-14.5); WBC 4.5 10x3/uL (4.8-10.8)
[2017-01-22 04:57] LABS: CALC OSMOLALITY 274 mosm/kg (275-300); CALCIUM 8.3 mg/dL (8.5-10.1); CARBON DIOXIDE 25.8 mmol/L (21.0-32.0); CHLORIDE - SERUM 105 mmol/L (98-107); CREATININE - SERUM 0.9 mg/dL (0.6-1.3); GLUCOSE 92 mg/dL (74-106); POTASSIUM - SERUM 4.1 mmol/L (3.5-5.1); SODIUM 138 mmol/L (136-145); UREA NITROGEN 10 mg/dL (7-18); eGFR NON AFRICAN AMERICAN 86 mL/min (90-120)
[2017-01-22 08:36] VITALS: BP 161/78
[2017-01-22 12:15] VITALS: BP 142/80
--- NOTE | 2017-01-22 13:11 | NUR ---
NUTRITION F/U CHART REVIEWED. PT VISIT. TOLERATING REG DIET WITH IMPROVED PO INTAKE. WILL CONTINUE TO PROVIDE DIETM MONITOR INTAKE, PT PROGRESS. RD FOLLOWING
--- NOTE | 2017-01-22 15:43 | NUR ---
PT ORIENTED TO SELF ONLY. RESP EVEN AND NONLABORED IV TO RIGHT HAND PATENT AND INTACT AT THIS TIME PT HERE FOR UTI FOR THIS VISIT
--- NOTE | 2017-01-22 15:44 | NUR ---
SRX2 BED AT LOWEST SETTING CALL LIGHT WITHIN REACH WILL CONTINUE TO MONITOR
[2017-01-22 15:57] VITALS: BP 150/76
[2017-01-22 20:00] VITALS: BP 160/81
[2017-01-23] VITALS: BP 165/73
[2017-01-23 04:00] VITALS: BP 154/79
[2017-01-23 04:39] LABS: BASOPHILS 0.2 % (0-2); HEMATOCRIT 32.9 % (42.0-54.0); HEMOGLOBIN 10.7 g/dL (13.5-17.5); LYMPHOCYTES 9.4 % (15-50); MCH 30.5 pg (26.0-34.0); MCHC 32.5 g/dL (31.0-37.0); MCV 93.7 fL (80.0-100.0); MEAN PLATELET VOLUME 8.9 fL (7.4-10.4); MONOCYTES 11.7 % (2-11); NEUTROPHILS 76.7 % (40-80); PLATELET COUNT 286 10x3/uL (130-400); RBC 3.51 10x6/uL (4.20-6.10); RDW 14.6 % (11.5-14.5); WBC 4.9 10x3/uL (4.8-10.8)
[2017-01-23 04:55] LABS: CALC OSMOLALITY 277 mosm/kg (275-300); CALCIUM 8.8 mg/dL (8.5-10.1); CARBON DIOXIDE 26.5 mmol/L (21.0-32.0); CHLORIDE - SERUM 106 mmol/L (98-107); CREATININE - SERUM 0.9 mg/dL (0.6-1.3); GLUCOSE 99 mg/dL (74-106); SODIUM 140 mmol/L (136-145); UREA NITROGEN 11 mg/dL (7-18); eGFR NON AFRICAN AMERICAN 86 mL/min (90-120)
[2017-01-23] MEDS ORDERED: MACROBID100 MG PO (06:43)
[2017-01-23] MEDS ORDERED: LEVAQUIN500 MG PO (06:44)
[2017-01-23 07:59] VITALS: BP 150/81
--- NOTE | 2017-01-23 08:00 | NUR ---
PT AWAKE AND ALERT. IN ROOM. PT REPORTS NO PAIN AT THIS TIME. BED ALARM ON. UROSTOMY ON RIGHT LOWER QUADRANT WITH YELLOW URINE. CALL LIGHT IN REACH. WILL CONTINUE TO MONITOR.
--- NOTE | 2017-01-23 08:09 | NUR ---
Patient Name: LAWSON LA Admission Status: ER Accout number: [id number] Admission Date: 01-18-2017 : 1935 Admission Diagnosis:URINARY TRACT INFECTION, SITE NOT SPECIFIED Attending: DONG CORREIA Current LOS: 5 Anticipated DC Date: Planned Disposition: Home Health Service Primary Insurance: MEDICARE A & B Discharge Planning Comments: CM MET WITH PATIENT TO ASSESS DISCHARGE PLANNING NEEDS. PATIENT LIVES WITH HIS AUGUSTINE WHO WILL BE DRIVING HIM HOME AT DISCHARGE. PATIENT HAS 2 RAMPS IN HIS HOME AND A WHEELCHAIR AND WALKER. HE CURRENTLY IS USING HH WITH PT WITH [facility]. AND PATIENT DENIES ANY CM NEEDS AT THIS TIME. IMM SERVED AND PLACED IN CHART. CM WILL CONTINUE TO FOLLOW AND ASSIST NEEDED PCP: BREN HUNT IN [place] AUGUSTINE LA () [phone] Scrap Separator: Brittani Ivey * Is the patient Alert and Oriented? Yes 0 * How many steps to enter\exit or inside your home? RAMP 0 * PCP BREN 0 * Pharmacy [facility] IN [place] 0 * Preadmission Environment Home with Family 0 * ADLs Partial Dependent 0 * Partial ADLs (Assistance needed) Ambulation Medication Management 0 * Equipment Walker Wheelchair 0 * List name and contact numbers for known caregivers / representatives who currently or will assist patient after discharge: AUGUSTINE LA 0 * Community resources currently utilized Home Health 0 * Please name any agencies selected above. [facility] 0 * Additional services required to return to the preadmission environment? Yes 0 * Can the patient safely return to the preadmission environment? Yes 0 * Has this patient been hospitalized within the prior 30 days at any hospital? No 0 Grand Total: 0
--- NOTE | 2017-01-23 08:29 | NUR ---
PT SITTING UP EATING BREAKFAST. IN ROOM HELPING HIM WITH HIS FOOD. AM MEDICATIONS GIVEN WITH NO COMPLICATIONS.
--- NOTE | 2017-01-23 11:30 | NUR ---
DISCHARGE INSTRUCTIONS GIVEN TO . PT ROLLED OUT IN WHEEL CHAIR.
== END 2017-01-23 12:00 | disposition home health service (06) | DRG 689 ==
LOC: D.ER 11:43 → D.MS 12:35
PROVIDERS: Emergency Medicine; Family Medicine; ADMIT Family Medicine
DX: N39.0 Urinary tract infection, site not specified (principal); G93.41 Metabolic encephalopathy; E87.1 Hypo-osmolality and hyponatremia; I10 Essential (primary) hypertension; I48.91 Unspecified atrial fibrillation; Z85.51 Personal history of malignant neoplasm of bladder; R41.0 Disorientation, unspecified

== ENCOUNTER 2017-02-26 11:50 | Inpatient (IN) | payer MEDICARE, BC ==
[~2017-02-26 11:50] MED LIST changes: +BACTRIM DS TABL1 TAB PO; +FERROUS SULFAT325 MG PO; +MACROBID100 MG PO
[2017-02-26] MEDS ORDERED: VITAMIN D2000 UNIT PO (12:45)
[2017-02-26 12:52] VITALS: BMI 21.2
[2017-02-26 13:58] LABS: ALBUMIN 3.8 g/dL (3.4-5.0); ANION GAP 16.7 mmol/L (8-16); BILIRUBIN - TOTAL 1.11 mg/dL (0.2-1.3); CALCIUM 9.7 mg/dL (8.5-10.1); CARBON DIOXIDE 23.4 mmol/L (21.0-32.0); CREATININE - SERUM 1.4 mg/dL (0.6-1.3); POTASSIUM - SERUM 4.1 mmol/L (3.5-5.1); PROTEIN - SERUM 7.9 g/dL (6.4-8.2)
[2017-02-26 15:33] LABS: BASOPHILS 0 % (0-2); EOSINOPHILS 0 % (0-7); HEMOGLOBIN 13.5 g/dL (13.5-17.5); IMMATURE GRANULOCYTES 0.3 % (0-5); LYMPHOCYTES 6.6 % (15-50); MCH 31.2 pg (26.0-34.0); MCHC 33.8 g/dL (31.0-37.0); MCV 92.4 fL (80.0-100.0); MEAN PLATELET VOLUME 10.3 fL (7.4-10.4); MONOCYTES 2.9 % (2-11); NEUTROPHILS 90.2 % (40-80); PLATELET COUNT 359 10x3/uL (130-400); RBC 4.33 10x6/uL (4.20-6.10); RDW 14.4 % (11.5-14.5); WBC 18.2 10x3/uL (4.8-10.8)
[2017-02-26 17:34] VITALS: BP 129/71
[2017-02-26 20:00] VITALS: BP 133/65
[2017-02-26 21:18] LABS: APPEARANCE HAZY (CLEAR); BILIRUBIN NEGATIVE (NEGATIVE); COLOR YELLOW (YELLOW); GLUCOSE NEGATIVE (NEGATIVE); KETONE NEGATIVE (NEGATIVE); NITRITE NEGATIVE (NEGATIVE); PROTEIN TRACE mg/dL (NEGATIVE); UROBILINOGEN NORMAL (NORMAL)
--- NOTE | 2017-02-26 22:15 | NUR ---
REC'D LYING IN BED. ALERT AND ORIENTED X3. DENIED PAIN AT THIS TIME. DENIED NEEDS AT THIS TIME. INSTRUCTED TO CALL IF NEEDED ANYTHING, VERBLAIZED UNDERSTANDING. TOOK URINE DOWN TO LAB. WILL CONT TO MONITOR. NO DISTRESS NOTED. BED LOW, LOCKED, CALL LIGHT IN REACH, ALARM ON.
--- NOTE | 2017-02-27 02:00 | NUR ---
PT IN BED WITH NO DISTRESS. RESPIRATIONS EVEN AND UNLABORED. SIDE RAILS X 2. BED LOW. CALL LIGHT IN REACH.
[2017-02-27 04:00] VITALS: BP 98/53
[2017-02-27 04:07] LABS: BASOPHILS 0.1 % (0-2); EOSINOPHILS 0 % (0-7); HEMATOCRIT 43.1 % (42.0-54.0); HEMOGLOBIN 14.3 g/dL (13.5-17.5); IMMATURE GRANULOCYTES 0.2 % (0-5); LYMPHOCYTES 4.5 % (15-50); MCH 31.4 pg (26.0-34.0); MCHC 33.2 g/dL (31.0-37.0); MONOCYTES 4.7 % (2-11); NEUTROPHILS 90.5 % (40-80); PLATELET COUNT 313 10x3/uL (130-400); RBC 4.56 10x6/uL (4.20-6.10); RDW 14.8 % (11.5-14.5); WBC 19.1 10x3/uL (4.8-10.8)
[2017-02-27 04:15] LABS: MCV 94.5 fL (80.0-100.0)
[2017-02-27 04:32] LABS: ANION GAP 17.6 mmol/L (8-16); CALCIUM 8.9 mg/dL (8.5-10.1); CARBON DIOXIDE 20.7 mmol/L (21.0-32.0)
[2017-02-27 04:33] LABS: CREATININE - SERUM 2.2 mg/dL (0.6-1.3); POTASSIUM - SERUM 3.3 mmol/L (3.5-5.1)
--- NOTE | 2017-02-27 07:02 | HP ---
PATIENT: LAWSON LA MEDICAL RECORD: [id number] ACCOUNT: [id number] LOCATION:[facility] : 36 ADMISSION DATE: 02/26/17 HISTORY AND PHYSICAL EXAMINATION DATE OF ADMISSION: 02/26/2017 CHIEF COMPLAINT: Lethargy. 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 He has been hospitalized numerous times in the past for urinary tract infection. The states he had done well until Friday. She noticed a discoloration in urine, strong odor. He has had nausea and vomiting since Friday. PAST MEDICAL HISTORY: Also significant for having borderline diabetes, also hyperlipidemia, hypertension and rheumatoid arthritis. MEDICATIONS: Aspirin 81 mg once a day, iron 325 mg p.o. b.i.d., losartan 100 mg 1 p.o. q. day, Mobic 15 mg once a day, Pacerone 200 mg once daily, pantoprazole 40 mg 1 p.o. q. day, vitamin D3 of 2000 international units once a day. ALLERGIES: The patient has no known allergies. FAMILY HISTORY: Father had lung cancer. Son had heart disease. Mother of pneumonia in her 80s. SOCIAL HISTORY: The patient was educated through the 12th grade. Retired repairman. Currently . Denies any ethanol or tobacco use. REVIEW OF SYSTEMS: GENERAL: He denies any headaches, seizure or syncope. Denies change in visual or auditory acuity. PULMONARY: He denies any shortness of breath, cough, congestion, history of TB, asthma or bronchitis. CARDIOVASCULAR: No chest pain, palpitation, PND or orthopnea. GASTROINTESTINAL: No chronic nausea, vomiting, melena or hematochezia. GENITOURINARY: No urgency, frequency or dysuria. PHYSICAL EXAMINATION: GENERAL: The patient is in a wheelchair. He is accompanied by his as well as their son. The patient was unable to weigh. VITAL SIGNS: His blood pressure is 122/66, pulse 76, respiratory rate 16, and temperature 97. HEENT: Head is normocephalic. No lesions. Ears: TMs clear. Eyes: Pupils are equal, round and reactive to light. His extraocular movements are intact. His nasal cavity, oral cavity and oropharynx are clear. NECK: Supple. There is no adenopathy. HEART: Has a regular rate and rhythm without any murmurs, gallops or rubs. LUNGS: Clear to auscultation and percussion. ABDOMEN: Soft, bowel sounds are somewhat hypoactive. No tenderness is noted. EXTREMITIES: Lower extremities have no edema. LABORATORY DATA: His white count was 24,000. Urinalysis shows 5-10 wbc's per HISTORY AND PHYSICAL [id number] LAWSON LA high-powered field. ASSESSMENT: Leukocytosis, possible sepsis, history of bladder cancer as well as prostate cancer, rheumatoid arthritis, gastroesophageal reflux, history of atrial fibrillation and hypertension. PLAN: The patient will be admitted. Blood cultures and urine cultures will be obtained and will acute abdominal series. He will be placed on vancomycin 1 gram q.12 hours, pharmacy will monitor peaks and troughs. Also, started on Merrem 1 gram q.8 hours, IV hydration with D5 normal saline at 125 cc an hour. We will continue to evaluate. TRANSINT:[id number] Voice Confirmation ID: [id number] DOCUMENT ID: [id number] DONG CORREIA MD at 0702 CC: [id number] DICTATION DATE: 02/26/17 1255 CERTIFIED HOME HEALTH AIDE: 02/26/17 1313 ADM IN [place] [id number] [place] [id number]
--- NOTE | 2017-02-27 08:00 | NUR ---
ASSESSMENT PER FLOW SHEET.PT WITHOUT DISTRESS.DENIES NEEDS.CALL LIGHT IN REACH
[2017-02-27 08:32] VITALS: BP 96/55
--- NOTE | 2017-02-27 10:44 | NUR ---
Patient Name: LAWSON LA Admission Status: Urgent Accout number: [id number] Admission Date: 02-26-2017 : 1935 Admission Diagnosis: Attending: DONG CORREIA Current LOS: 1 Anticipated DC Date: 03-04-2017 Planned Disposition: Home with Home Health Primary Insurance: MEDICARE A & B Discharge Planning Comments: CM MET WITH PATIENTS FAMILY SHAYY (SON), AND AUGUSTINE () REGARDING D/C NEEDS AND PLANS. FAMILY STATED THERE IS A RAMP TO ENTER HOME AND NO STAIRS INSIDE. PATIENT USES A WHEELCHAIR AND WALKER BUT ALSO HAS A CANE, SHOWER CHAIR, AND BS COMMODE IF NEEDED. PATIENTS PCP IS DR. CORREIA AND PHARMACY IS [facility] IN [place]. PATIENT IS CURRENT WITH [facility]. CM WILL CONTINUE TO FOLLOW WITH D/C NEEDS AND PLANS. PCP DR. BR[facility] HUNT IN [facility]- [phone] SHAYY(SON) [phone] AUGUSTINE () [phone] [facility] [phone] Digital Account Executive: Jennifer Vieyra How many steps to enter\exit or inside your home? RAMP 0 * PCP BREN 0 * Pharmacy [facility] 0 * Preadmission Environment Home with Family 0 * ADLs Partial Dependent 0 * Partial ADLs (Assistance needed) Ambulation Bathing Dressing Medication Management Toileting Transfers 0 * Equipment Bedside Commode Cane Shower Chair Walker Wheelchair 0 * List name and contact numbers for known caregivers / representatives who currently or will assist patient after discharge: SHAYY (SON) [phone] AUGUSTINE () [phone] 0 * Community resources currently utilized Home Health 0 * Please name any agencies selected above. [facility] 0 * Additional services required to return to the preadmission environment? Yes 0 * Can the patient safely return to the preadmission environment? Yes 0 * Has this patient been hospitalized within the prior 30 days at any hospital? No 0 Grand Total: 0
--- NOTE | 2017-02-27 12:00 | NUR ---
REMAINS NPO FOR CT.PT WITHOUT DISTRESS.FAMILY AT BEDSIDE.FALL PREVENTION REMAINS IN [place] WITH BED ALARM OMN AND FUNCTIOINING
[2017-02-27 12:03] VITALS: BP 103/53
[2017-02-27 15:15] VITALS: BMI 21.2
[2017-02-27 16:00] VITALS: BP 93/49
--- NOTE | 2017-02-27 19:11 | NUR ---
REMAINS WITHOUT NEEDS,WITHOUT CHANGE.CONT PLAN OF CARE
--- NOTE | 2017-02-27 19:30 | NUR ---
PT AOX4 FAMILY AT BEDSIDE. IV RIGHT HAND PATENT D5NS @125. DENIES ANY NEEDS AT THIS TIME. CIERRA ALARM ON. WILL CONTINUE WITH PLAN OF CARE.
[2017-02-27 20:00] VITALS: BP 75/37
[2017-02-27 22:25] VITALS: BP 84/42
[2017-02-28] VITALS (50 sets, daily range): BP systolic 71–131; BP diastolic 38–96
[2017-02-28 05:43] LABS: BASOPHILS 0.1 % (0-2); EOSINOPHILS 0 % (0-7); HEMATOCRIT 36.4 % (42.0-54.0); HEMOGLOBIN 12.1 g/dL (13.5-17.5); IMMATURE GRANULOCYTES 0.4 % (0-5); LYMPHOCYTES 1.6 % (15-50); MCH 30.9 pg (26.0-34.0); MCHC 33.2 g/dL (31.0-37.0); MCV 92.9 fL (80.0-100.0); MEAN PLATELET VOLUME 10.8 fL (7.4-10.4); MONOCYTES 6.3 % (2-11); NEUTROPHILS 91.6 % (40-80); RBC 3.92 10x6/uL (4.20-6.10); RDW 14.9 % (11.5-14.5)
[2017-02-28 06:11] LABS: ANION GAP 20.4 mmol/L (8-16); CALCIUM 8.3 mg/dL (8.5-10.1); CARBON DIOXIDE 17.5 mmol/L (21.0-32.0); VANCOMYCIN - TROUGH 22.9 ug/mL (10.0-20.0)
--- NOTE | 2017-02-28 06:11 | NUR ---
PT DID NOT HAVE A BM DURING SHITFT WAS UNABLE TO COLLECT STOOL SAMPLE ORDERED.
[2017-02-28 06:20] LABS: PLATELET COUNT 216 10x3/uL (130-400); WBC 13.2 10x3/uL (4.8-10.8)
[2017-02-28 06:23] LABS: POTASSIUM - SERUM 3.9 mmol/L (3.5-5.1)
--- NOTE | 2017-02-28 12:00 | NUR ---
CALLED TO ROOM BY AMNA JIMENEZ FOR INCREASED BP SEE GRAPHICS.PT NON RESPONSIVE TO VERBAL AND TACTILE STIMULI.RAPID RESPONCE CALLED,SEE SHEET.
--- NOTE | 2017-02-28 12:22 | NUR ---
TO ICU VIA BED.
--- NOTE | 2017-02-28 12:25 | NUR ---
PT BROUGHT FROM MED/SURG RAPID RESPONSE BY BED. PT DEC LOC. BP 73/39. HR 96. O2 SAT 96% ON 2LNC. 20 G PIV STARTED IN RIGHT AC X1 STICK. 20G PIV STARTED IN LEFT FA X1 STICK. PT HOB DOWN AND IN TREND POSITION. FSBS 113.
--- NOTE | 2017-02-28 12:54 | NUR ---
DR. GORDILLO NOTIFIED OF CONSULT. DR. ULGO NOTIFIED OF CONSULT.
--- NOTE | 2017-02-28 13:45 | NUR ---
PT ALERT, SAYS HE IS FEELING SOMEWHAT BETTER, RESPIRATIONS SHALLOW, SPO2 IN 90S 4L NC, BP STABLE ON NOREPINEPHRINE DRIP, TITRATING, SEE IV FLOWSHEET, FAMILY HAVE BEEN IN TO SEE PT, ALL QUESTIONS ANSWERED, SEEN BY DUY AND DERECK WHO BOTH ALSO SPOKE WITH FAMILY, DENIES PAIN, WILL CONTINUE TO MONITOR
--- NOTE | 2017-02-28 15:36 | NUR ---
TITRATING LEVOPHED TO BP, DENIES PAIN AND SOB, VSS, WILL CONTINUE TO MONITOR
--- NOTE | 2017-02-28 17:00 | NUR ---
TITRATING LEVOPHED, CURRENTLY AT 25MCG, SEE FLOWSHEET, DENIES PAIN, ORAL CARE AND REPOSITIONED, WILL CONTINUE TO MONITOR
--- NOTE | 2017-02-28 17:44 | NUR ---
PAGED RENAL ABOUT ABGS AND INCREASING RR ALONG WITH INCREASED DOSE OF LEVOPHED
--- NOTE | 2017-02-28 18:06 | NUR ---
NEW ORDERS FOR ONE AMP BICARB, BOLUS 250 OF D5NS AND START DOPAMINE IF NEEDED
--- NOTE | 2017-02-28 19:30 | NUR ---
PT NON VERBAL, SELDOM RESPONDING TO QUESTIONS ASKED. S1S2 HEARD, PERIPHERAL PULSES PRESENT. LUNG SOUNDS CLEAR. SPO2 97, 4L O2 VIA NC. BOWEL SOUNDS ACTIVE IN ALL QUADRANTS. UROSTOMY PRESENT WITH DARK URINE TO BEDSIDE DRAINAGE. GENERALIZED WEAKNESS PRESENT. PT REPOSITIONED WITH PROMINENCES BRIDGED. CALL LIGHT WITHIN PT REACH. ROOM VISIBLE FROM NURSES STATION. CPOC.
--- NOTE | 2017-02-28 21:00 | NUR ---
NO VISITORS AT THIS TIME. PT RESTING QUIETLY, NO ACUTE CHANGES NOTED AT THIS TIME.
--- NOTE | 2017-02-28 23:00 | NUR ---
REASSESSMENT COMPLETE, SEE FLOWSHEET FOR ALL FINDINGS. PT CURRENTLY IN UNCONTROLLED AFIB ON MONITOR. DR.BOWEN REYES. PT REPOSITIONED FOR COMFORT. LEVOPHED GTT INFUSING TO MAINTAIN BP WITHIN GIVEN PARAMETERS. CALL LIGHT WITHIN PT REACH. CPOC.
--- NOTE | 2017-02-28 23:25 | NUR ---
REC'D CALLBACK FROM DR. GORDILLO. NEW ORDERS REC'D.
--- NOTE | 2017-02-28 23:37 | NUR ---
AMIODARONE INFUSION INITIATED.
[2017-03-01] VITALS (94 sets, daily range): BP systolic 62–126; BP diastolic 31–88
--- NOTE | 2017-03-01 03:40 | NUR ---
REASSESSMENT COMPLETE, SEE FLOWSHEET FOR ALL FINDINGS. PT NON VERBAL. NO S/S OF PAIN. LEVOPHED REMAINS INFUSING TO MAINTAIN BP WITHIN GIVEN PARAMETERS. UNCONTROLLED AFIB ON MONITOR. CPOC.
[2017-03-01 05:25] LABS: BASOPHILS 0.1 % (0-2); EOSINOPHILS 0 % (0-7); HEMATOCRIT 35.6 % (42.0-54.0); HEMOGLOBIN 12.5 g/dL (13.5-17.5); IMMATURE GRANULOCYTES 0.7 % (0-5); LYMPHOCYTES 2.2 % (15-50); MCH 32.3 pg (26.0-34.0); MCHC 35.1 g/dL (31.0-37.0); MEAN PLATELET VOLUME 11.4 fL (7.4-10.4); MONOCYTES 5.3 % (2-11); NEUTROPHILS 91.7 % (40-80); PLATELET COUNT 283 10x3/uL (130-400); RBC 3.87 10x6/uL (4.20-6.10); RDW 15.4 % (11.5-14.5); WBC 16.5 10x3/uL (4.8-10.8)
[2017-03-01 05:45] LABS: ANION GAP 18.5 mmol/L (8-16); CALCIUM 8.2 mg/dL (8.5-10.1); CARBON DIOXIDE 18.3 mmol/L (21.0-32.0); MAGNESIUM - SERUM 1.7 mg/dL (1.8-2.4); POTASSIUM - SERUM 3.8 mmol/L (3.5-5.1)
--- NOTE | 2017-03-01 08:00 | NUR ---
DIANDRA BARLOW ON UNIT FOR ASSESSMENT - ORDER TYALYSIS - WITH NURSING PORT - 0815 - PAGED DR. AGUIRRE [id number] AGUIRRE AT BEDSIDE TO PLACE TRIALYSIS - 0845 CONSENT SIGNED BY SPOUSE - ULTRASOUND IN ROOM 0900 PLACED TRIALYSIS - PT TOLERATED PROCEDURE WELL
--- NOTE | 2017-03-01 09:00 | NUR ---
FAMILY AT BEDSIDE - UPDATED FAMILY R/T PROCEDURE. DR. MORALES AT BEDSIDE - DISCUSSED FULL CODE STATUS - FAMILY ASKED TO DO EVERYTHING - DR. MORALES ORDERED CARDIAC ENAYMES AND EKG - NOTIFY HIM IF ELEVATED - TO CONSULT CARDIOLOGY IF ENZYMES ARE ELEVATED - CPOC
--- NOTE | 2017-03-01 09:55 | NUR ---
NEGATIVE CARDIAC ENZYMENS - CHEST X-RAY - MAY USE TRIALYSIS - EKG COMPLETED - CPOC PT OPENED EYES AND NODDED YES WHEN ASKED IF HE WAS IN PAIN NOTIFIED ARACELI HIGGINS APRN
[2017-03-01 10:24] LABS: CKMB 1.5 U/L (0.0-3.6); CREATINE KINASE 203 UL (21-232); TROPONIN-I 0.045 ng/mL (0.000-0.060)
--- NOTE | 2017-03-01 11:00 | NUR ---
ASSESSMENT COMPLETE - SEE FLOW SHEET
--- NOTE | 2017-03-01 12:00 | NUR ---
FAMILY AT BEDSIDE - UPDTATED FAMILY ON PT'S CONDITION - REC'ED UROSTOMY BAG TO REPLACE - REPLACEMENT STOMA IN PT'S MEDICATION DRAWER - CPOC
--- NOTE | 2017-03-01 13:15 | NUR ---
TITRATING LEVOFED PER MD ORDERS - CPOC
--- NOTE | 2017-03-01 15:00 | NUR ---
PT AWAKE - ABLE TO TRACK MOVEMENT - FAMILY AT BEDSIDE - PT STATED 'HEY THERE' TO HIS SON-IN-LAW. CONTINUE TO TITRATE LEVOFED - CPOC
--- NOTE | 2017-03-01 16:00 | NUR ---
I&O COMPLETE - SEE FLOW SHEET
[2017-03-01 16:14] LABS: CALC OSMOLALITY 300 mosm/kg (275-300); CALCIUM 8.4 mg/dL (8.5-10.1); CARBON DIOXIDE 17.8 mmol/L (21.0-32.0); CHLORIDE - SERUM 107 mmol/L (98-107); CKMB 1.7 U/L (0.0-3.6); CREATININE - SERUM 4.2 mg/dL (0.6-1.3); GLUCOSE 165 mg/dL (74-106); POTASSIUM - SERUM 3.7 mmol/L (3.5-5.1); SODIUM 138 mmol/L (136-145); TROPONIN-I 0.041 ng/mL (0.000-0.060); UREA NITROGEN 72 mg/dL (7-18); eGFR NON AFRICAN AMERICAN 14 mL/min (90-120)
[2017-03-01 16:20] LABS: CREATINE KINASE 255 UL (21-232)
--- NOTE | 2017-03-01 16:54 | NUR ---
CHANGED UROSTOMOY BAG - PT RESTING WITH EYES CLOSED - RESPIRATIONS REGULAR RATE AND RYTHM
--- NOTE | 2017-03-01 17:26 | NUR ---
CHANGED LINENS - COLLECTED STOOL SAMPLE - ORAL SUCTION COMPLETED TO CLEAR AIRWAY - PT RESTING WITH EYES CLOSED - CPOC
--- NOTE | 2017-03-01 18:00 | NUR ---
FAMILY AT BEDSIDE - PT RESTING WITH EYES CLOSED - RESPIRATIONS REG RATE AND RHYTHM - CPOC
--- NOTE | 2017-03-01 19:00 | NUR ---
PT LETHARGIC AND NON VERBAL. UNABLE TO ANSWER MOST QUESTIONS AT THIS TIME. RESPIRATIONS SHALLOW AND FAST, SPO2 96 ON 7L O2 VIA OXYMIZER. LUNG SOUNDS CRACKLES/DIMINISHED. UNABLE TO COUGH/DB. HR IRREGULAR, AFIB ON MONITOR. PERIPHERAL PULSES PRESENT. BOWEL SOUNDS HYPOACTIVE X4. UROSTOMY INTACT WITH MINIMAL DARK URINE TO BEDSIDE DRAINAGE. ABD TENDER AND DISTENDED. PT REPOSITIONED FOR COMFORT. ROOM VISIBLE FROM NURSES STATION. CPOC.
--- NOTE | 2017-03-01 21:30 | NUR ---
NO VISITORS AT THIS TIME. VSS, NO S/S OF PAIN. RESTING QUIETLY. WILL CONTINUE TO MONITOR.
[2017-03-01 22:29] LABS: CKMB 1.7 U/L (0.0-3.6); CREATINE KINASE 283 UL (21-232); TROPONIN-I 0.038 ng/mL (0.000-0.060)
--- NOTE | 2017-03-01 23:00 | NUR ---
REASSESSMENT COMPLETE, SEE FLOWSHEET FOR ALL FINDINGS. REMAINS LETHARGIC. VSS WITH LEVOPHED INFUSING TO MAINTAIN BP. AFIB ON MONITOR, AMIODARONE GTT INFUSING. SPO2 96 AT THIS TIME. WILL CONTINUE TO MONITOR.
[2017-03-02] VITALS (94 sets, daily range): BP systolic 75–131; BP diastolic 56–93
--- NOTE | 2017-03-02 03:00 | NUR ---
REASSESSMENT COMPLETE, NO ACUTE CHANGES AT THIS TIME. PT REMAINS LETHARGIC. REPOSITIONED WITH PROMINENCES BRIDGED. ROOM VISIBLE FROM NURSES STATION. CPOC.
[2017-03-02 04:35] LABS: BASOPHILS 0.1 % (0-2); EOSINOPHILS 0.1 % (0-7); HEMATOCRIT 35.4 % (42.0-54.0); HEMOGLOBIN 11.8 g/dL (13.5-17.5); LYMPHOCYTES 2.3 % (15-50); MCH 31.2 pg (26.0-34.0); MCHC 33.3 g/dL (31.0-37.0); MCV 93.7 fL (80.0-100.0); MEAN PLATELET VOLUME 10.6 fL (7.4-10.4); MONOCYTES 6.1 % (2-11); NEUTROPHILS 90.4 % (40-80); PLATELET COUNT 233 10x3/uL (130-400); RBC 3.78 10x6/uL (4.20-6.10); RDW 15.6 % (11.5-14.5); WBC 16.2 10x3/uL (4.8-10.8)
[2017-03-02 05:07] LABS: ALBUMIN 1.7 g/dL (3.4-5.0); ANION GAP 18.5 mmol/L (8-16); BILIRUBIN - TOTAL 0.38 mg/dL (0.2-1.3); CALCIUM 8.3 mg/dL (8.5-10.1); CARBON DIOXIDE 17.2 mmol/L (21.0-32.0); CREATININE - SERUM 4.6 mg/dL (0.6-1.3); MAGNESIUM - SERUM 1.8 mg/dL (1.8-2.4); PHOSPHOROUS 3.7 mg/dL (2.5-4.9); POTASSIUM - SERUM 3.7 mmol/L (3.5-5.1); PROTEIN - SERUM 5.1 g/dL (6.4-8.2)
--- NOTE | 2017-03-02 06:00 | NUR ---
NO VISITORS AT THIS TIME. CPOC.
--- NOTE | 2017-03-02 19:00 | NUR ---
REPORT RECEIVED AND ASSESSMENT COMPLETED. SEE FLOWSHEET FOR FULL DETAILS. PT HAS A UROSTOMY. 300 OUT DURING DAY SHIFT, AND MORE FLUID AT SHIFT CHANGE. WILL MEASURE DURING I&O COLLECTION. PT IS ON LEVOPHED. WILL ATTEMPT TO TITRATE POSSIBLE. VSS AT THIS TIME. WILL MONITOR
--- NOTE | 2017-03-02 23:00 | NUR ---
REASSESSMENT COMPLETED. HAVE ENCOUNTERED SOME DIFFICULTY WEANING NOREPI OFF OF THE PATIENT. DOWN TO 11.5 AT THIS TIME. WILL CONTINUE TO TITRATE ABLE. VSS. WILL MONITOR
[2017-03-03] VITALS (87 sets, daily range): BP systolic 81–129; BP diastolic 37–97
--- NOTE | 2017-03-03 01:00 | NUR ---
NO CHANGES IN STATUS AT THIS TIME. VSS. WILL MONITOR
--- NOTE | 2017-03-03 03:00 | NUR ---
REASSESSMENT COMPLETED. SEE FLOWSHEET FOR FULL DETAILS. VSS. WILL CONTINUE TO MONITOR
[2017-03-03 04:15] LABS: BASOPHILS 0.1 % (0-2); EOSINOPHILS 0.1 % (0-7); HEMATOCRIT 32.5 % (42.0-54.0); HEMOGLOBIN 11.2 g/dL (13.5-17.5); IMMATURE GRANULOCYTES 1.6 % (0-5); LYMPHOCYTES 2.6 % (15-50); MCH 31.1 pg (26.0-34.0); MCHC 34.5 g/dL (31.0-37.0); MCV 90.3 fL (80.0-100.0); MEAN PLATELET VOLUME 10.8 fL (7.4-10.4); MONOCYTES 6.5 % (2-11); NEUTROPHILS 89.1 % (40-80); PLATELET COUNT 186 10x3/uL (130-400); RDW 15.7 % (11.5-14.5)
[2017-03-03 04:25] LABS: ALBUMIN 1.5 g/dL (3.4-5.0); ANION GAP 18.8 mmol/L (8-16); BILIRUBIN - TOTAL 0.36 mg/dL (0.2-1.3); CALCIUM 7.9 mg/dL (8.5-10.1); CARBON DIOXIDE 15.5 mmol/L (21.0-32.0); CREATININE - SERUM 4.8 mg/dL (0.6-1.3); MAGNESIUM - SERUM 1.7 mg/dL (1.8-2.4); PHOSPHOROUS 3.6 mg/dL (2.5-4.9); POTASSIUM - SERUM 3.3 mmol/L (3.5-5.1); PROTEIN - SERUM 4.6 g/dL (6.4-8.2)
--- NOTE | 2017-03-03 09:33 | NUR ---
NUTRITION F/U CHART REVIEWED. PT CURRENTLY NPO. NOTE PROBABLE HD. IF UNABLE TO RESUME DIET, RECOMMEND NEPRO TUBE FEEDS WITH GOAL RATE 40 CC/HR. RD FOLLOWING
--- NOTE | 2017-03-03 18:56 | NUR ---
HD IN PROGRESS, HR INCREASING TO 120 TO 130, BP DROPS TO 65/42. STOPPED PULL AND TITRATED LEVOPHED UP FOR SBP ABOVE 90. CALLED DR OWEN AND HD STOPPED AFTER HR CONTINUES TO BE 130UCAF. SBP 90.
--- NOTE | 2017-03-03 19:15 | NUR ---
REC'D TO CARE, BOAT DISPATCHER PER FLOWSHEET. HD OFF NOW. CM - UCAF. PT LETHARGIC. IVFS INFUSING TO R IJ TRIALYSIS - SEE FLOWSHEET, TITIRATING LEVOPHED PER MD ORDER. ALARMS ON. CONT CLOSE MONITORING.
--- NOTE | 2017-03-03 21:19 | NUR ---
NO VISITORS. PT INCONT OF DARK BROWN LOOSE STOOL. IVÁN-CARE DONE, LINENS CHANGED. SBP NOW 120S - WEANING LEVOPHED.
--- NOTE | 2017-03-03 21:30 | NUR ---
STATUS REPORT CALLED TO DR. CORREIA. NEW ORDER FOR IVF TO 75ML/HR.
--- NOTE | 2017-03-03 23:05 | NUR ---
REASSESSMENT PER FLOWSHEET. INCONT OF SMALL, LOOSE STOOL. IVÁN-CARE DONE AND PADS CHANGED. REPOSITIONED UP IN BED. ROM DONE AND HEELS BRIDGED.
[2017-03-04] VITALS (32 sets, daily range): BP systolic 81–123; BP diastolic 47–85
--- NOTE | 2017-03-04 01:03 | NUR ---
REPOSITIONED UP IN BED, MORE ALERT AT THIS TIME. CONT TO WEAN LEVOPHED GTT TOLERATED.
--- NOTE | 2017-03-04 03:02 | NUR ---
REASSESSMENT PER FLOWSHEET, NO ACUTE CHANGES. PT REPOSITIONED UP IN BED. ORAL CARE PROVIDED. REORIENTED TO TIME/DATE/ICU BY NURSE.
--- NOTE | 2017-03-04 04:30 | NUR ---
AM LAB DRAWN.
[2017-03-04 05:01] LABS: BASOPHILS 0.1 % (0-2); EOSINOPHILS 0.2 % (0-7); HEMATOCRIT 28.8 % (42.0-54.0); HEMOGLOBIN 9.9 g/dL (13.5-17.5); LYMPHOCYTES 5.2 % (15-50); MCH 30.6 pg (26.0-34.0); MCHC 34.4 g/dL (31.0-37.0); MCV 88.9 fL (80.0-100.0); MEAN PLATELET VOLUME 10.9 fL (7.4-10.4); MONOCYTES 6.6 % (2-11); NEUTROPHILS 84.9 % (40-80); RBC 3.24 10x6/uL (4.20-6.10)
[2017-03-04 05:14] LABS: PLATELET COUNT 120 10x3/uL (130-400); WBC 9.1 10x3/uL (4.8-10.8)
[2017-03-04 05:23] LABS: ALBUMIN 1.4 g/dL (3.4-5.0); ANION GAP 15.8 mmol/L (8-16); BILIRUBIN - TOTAL 0.3 mg/dL (0.2-1.3); CALCIUM 7.8 mg/dL (8.5-10.1); MAGNESIUM - SERUM 1.5 mg/dL (1.8-2.4)
[2017-03-04 05:30] LABS: CARBON DIOXIDE 20.2 mmol/L (21.0-32.0)
--- NOTE | 2017-03-04 06:00 | NUR ---
DAUGHTER AT BS. UPDATE GIVEN AND QUESTIONS ANSWERED.
--- NOTE | 2017-03-04 09:38 | NUR ---
NUTRITION F/U CHART REVIEWED. SPOKE WITH NURSING RE:NPO STATUS. PT IS RECEIVING D5W @ 75 CC/HR. PROVIDING~300 KCAL PER DAY. AWAIT CLEAR LIQUID DIET, MONITOR ADVANCEMENT. RD FOLLOWING
--- NOTE | 2017-03-04 11:14 | NUR ---
CXR COMPLETE,WND CARE NURSE HERE, AIR OVERLAY MATRESS APPLIED AND PT BATHED AND LINENS CHANGED.
--- NOTE | 2017-03-04 11:20 | NUR ---
Wound care: Lana ALEX requested air overlay mattress for pt d/t redness on buttocks and wounds on bilateral ankles. On assessment noted the right lateral ankle has a stage 3 pressure injury measuring 0.8cm x 0.6cm x 0.2cm. Wound bed is yellow with peeling pink edges. Left heel has a deep tissue injury measuring 2.5cm x 3.5cm - Purple in color Left buttock has a deep tissue injury measuring 3cm x 3cm - purple Pt was placed on an air overlay mattress. His heels are bridged. He is being turned q2h. He was on his left side prior to overlay being placed. He was then positioned on his back with heels elevated. He is incontinent of B&B and has a F/C. Right arm is edematous/weeping and has skin tear. It is being elevated on pillows. Recommend protecting right ankle wound with mepilex 2x2 and continue elevation. Keep left heel elevated also. Zinc oxide paste to bottom and periarea to protect skin from breakdown due to incontinence and continue repositioning q2h to protect left buttock from pressure. Wound care will continue monitoring.
--- NOTE | 2017-03-04 16:17 | NUR ---
dr alves rounded and spoke to and other family memebers at bedside re: poc. PT HAD LG AMT OF WATTERY STOOL. CLEANED AND CHANGED LINENS.
[2017-03-05] VITALS (23 sets, daily range): BP systolic 85–123; BP diastolic 45–91
[2017-03-05 04:10] LABS: BASOPHILS 0.1 % (0-2); EOSINOPHILS 0.2 % (0-7); HEMATOCRIT 29.5 % (42.0-54.0); IMMATURE GRANULOCYTES 2.9 % (0-5); LYMPHOCYTES 3.9 % (15-50); MCH 30.6 pg (26.0-34.0); MCHC 33.9 g/dL (31.0-37.0); MCV 90.2 fL (80.0-100.0); MONOCYTES 6.2 % (2-11); NEUTROPHILS 86.7 % (40-80); PLATELET COUNT 117 10x3/uL (130-400); RBC 3.27 10x6/uL (4.20-6.10); RDW 16.4 % (11.5-14.5)
[2017-03-05 04:11] LABS: WBC 12.2 10x3/uL (4.8-10.8)
[2017-03-05 04:22] LABS: ALBUMIN 1.4 g/dL (3.4-5.0); BILIRUBIN - TOTAL 0.48 mg/dL (0.2-1.3); CALCIUM 7.3 mg/dL (8.5-10.1); CARBON DIOXIDE 19.3 mmol/L (21.0-32.0); MAGNESIUM - SERUM 1.6 mg/dL (1.8-2.4); PROTEIN - SERUM 3.9 g/dL (6.4-8.2)
[2017-03-05 04:31] LABS: ANION GAP 18.9 mmol/L (8-16); POTASSIUM - SERUM 4.2 mmol/L (3.5-5.1)
--- NOTE | 2017-03-05 07:51 | NUR ---
HD NURSE HERE SITTING UP IN ROOM AT PRESENT. DR CORREIA SPOKE TO PT'S DAUGHTER THIS AM AT BS.
--- NOTE | 2017-03-05 07:51 | NUR ---
PT INC OF WATTERY STOOL. BATHED AND LINENS CHANGED.
--- NOTE | 2017-03-05 10:06 | NUR ---
HD IN PROGRESS FOR APPROX 1 HR. BP REMAINS STABLE W/O PRESSORS, HR INCREASED TO 132.
--- NOTE | 2017-03-05 12:16 | NUR ---
Mr. Duncan hab bedside hemodialysis today via his right IJ Trialysis from 0845 until 1145. Average blood flow was 300 to 350 mls/minute. Net fluid removed was 1500 mls. Post vital signs were: B/P: 99/53, HR: 110, Temp: 97.3, Resps: 19. Did not use any vassopressors. Just decreased his net fluid goal to 1500 mls when b/p got too low.
--- NOTE | 2017-03-05 15:01 | NUR ---
PT INC OF WATTERY STOOL, CLEANED AND LINENS CHANGED.CVL DSNG CHANGE COMPLETE PER STERAL TECH.
[2017-03-06] VITALS (29 sets, daily range): BP systolic 90–138; BP diastolic 51–89
[2017-03-06 04:00] LABS: BASOPHILS 0.1 % (0-2); EOSINOPHILS 0.1 % (0-7); HEMATOCRIT 32.2 % (42.0-54.0); HEMOGLOBIN 10.9 g/dL (13.5-17.5); IMMATURE GRANULOCYTES 2.3 % (0-5); LYMPHOCYTES 3.2 % (15-50); MCH 30.9 pg (26.0-34.0); MCHC 33.9 g/dL (31.0-37.0); MCV 91.2 fL (80.0-100.0); MEAN PLATELET VOLUME 11.7 fL (7.4-10.4); MONOCYTES 4.9 % (2-11); NEUTROPHILS 89.4 % (40-80); PLATELET COUNT 102 10x3/uL (130-400); RBC 3.53 10x6/uL (4.20-6.10); RDW 16.6 % (11.5-14.5)
[2017-03-06 04:01] LABS: WBC 16.9 10x3/uL (4.8-10.8)
[2017-03-06 04:24] LABS: ALBUMIN 1.6 g/dL (3.4-5.0); BILIRUBIN - TOTAL 0.32 mg/dL (0.2-1.3); CALCIUM 7.6 mg/dL (8.5-10.1); CREATININE - SERUM 3.2 mg/dL (0.6-1.3); MAGNESIUM - SERUM 1.8 mg/dL (1.8-2.4); PHOSPHOROUS 3.5 mg/dL (2.5-4.9); PROTEIN - SERUM 4.2 g/dL (6.4-8.2)
[2017-03-06 04:25] LABS: ANION GAP 12.7 mmol/L (8-16); CARBON DIOXIDE 26.6 mmol/L (21.0-32.0); POTASSIUM - SERUM 3.3 mmol/L (3.5-5.1)
--- NOTE | 2017-03-06 09:44 | NUR ---
AM MEDS GIVEN. PT RESTING COMFORTABLY. OVERLAY MATTRESS IN PLACE. NO OTHER NEEDS AT THIS TIME. WILL CONTINUE TO MONITOR.
--- NOTE | 2017-03-06 10:25 | NUR ---
NUTRITION F/U PT REMAINS NPO WITH TPN @ 40 CC/HR. WILL CONTINUE TO MONITOR PT PROGRESS. PROVIDE DIET OR TUBE FEEDS WHEN APPROPRIATE. RD FOLLOWING
--- NOTE | 2017-03-06 18:49 | NUR ---
PT REPORTED SOME PAIN THIS EVENING ON HIS BACK. DR. MORALES ORDER A LIDODERM PATCH. WAITING ON PATCH TO BE BROUGHT UP FROM [facility].
--- NOTE | 2017-03-06 19:00 | NUR ---
REPORT REC'D. PATIENT'S CARE ASSUMED. ASSESSMENT COMPELETED. SEE FLOW SHEETS FOR ALL FINDINGS. PT AWAKE, GARBLE WITH INCONPRESSIVE WARDS TO QUESTIONS. CONT A-FIB ON CM WITH HR AT 98. LUNG SOUNDS COARSE/ CRACKLES TO ULB WITH DIMINISHED TO LLB, UNLABORED ON 6L VIA HIGH FLOW NC. RT TIALYSIS INTACT, CLEAN AND DRY INFUSING IV FLUIDS VIA PUMP PER ORDER. LEFT LQ UROSTOMY INTACT WITH BLOODY DRAINAGE TO BAG. PPP. CONT ISOLATION PER PROTOCOL. WILL CONT TO MONITOR,
--- NOTE | 2017-03-06 21:00 | NUR ---
NO VISITORS AT THIS TIME. SCHEDULED MEDS GIVEN PER ORDER. WILL CONT TO MONITOR.
--- NOTE | 2017-03-06 23:00 | NUR ---
REASSESSMENT COMPLETED. SEE FLOW SHEETS FOR ALL FINDINGS. PT AROUSES EASILY WITH VOICES, NO ACUTE CHANGES IN PT'S CONDTION. AFIBCONT ON CM. CONT AMIODORANE DRIPS PER ORDER. REPOSITIONED FOR COMFORT. PILLOWS IN USE FOR SUPPORT. CALL LIGHT IN REACH. CONT TO MONITOR.
[2017-03-07] VITALS (31 sets, daily range): BP systolic 96–141; BP diastolic 40–95
--- NOTE | 2017-03-07 01:00 | NUR ---
DESATURATION NOTED TO 86% ON 6L VIA OXYMIZER, RT AT BEDSIDE. DEEP SUCTION DONE PER RT. ENCOUREGED PT TO COUGH. O2 SAT TO 94%. REPOSIIONED FOR COMFORT. HOB UP. CONT TO MONITOR.
--- NOTE | 2017-03-07 03:00 | NUR ---
REASSESSMENT COMPLETED PER FLOW SHEETS. PT AROUSES WITH VOICES. NO ACUTE CHANGES IN PT'S STATUS NOTED. VSS. REPOSITIONED FOR COMFORT. PILLOWS IN USE FOR SUPPORT. HEELS ELEVATED. HOB UP. SIDE RAILS UP. CPOC.
[2017-03-07 05:15] LABS: BASOPHILS 0 % (0-2); EOSINOPHILS 0.1 % (0-7); HEMATOCRIT 29.8 % (42.0-54.0); IMMATURE GRANULOCYTES 1.3 % (0-5); LYMPHOCYTES 2.3 % (15-50); MCH 30.7 pg (26.0-34.0); MCHC 33.6 g/dL (31.0-37.0); MCV 91.4 fL (80.0-100.0); MEAN PLATELET VOLUME 11.2 fL (7.4-10.4); MONOCYTES 3.8 % (2-11); NEUTROPHILS 92.5 % (40-80); PLATELET COUNT 84 10x3/uL (130-400); RBC 3.26 10x6/uL (4.20-6.10); RDW 16.7 % (11.5-14.5); WBC 21.3 10x3/uL (4.8-10.8)
[2017-03-07 05:48] LABS: ALBUMIN 1.5 g/dL (3.4-5.0); ANION GAP 13.2 mmol/L (8-16); BILIRUBIN - TOTAL 0.33 mg/dL (0.2-1.3); CALCIUM 7.9 mg/dL (8.5-10.1); CARBON DIOXIDE 26.5 mmol/L (21.0-32.0); CREATININE - SERUM 3.8 mg/dL (0.6-1.3); POTASSIUM - SERUM 3.7 mmol/L (3.5-5.1); PROTEIN - SERUM 4.6 g/dL (6.4-8.2)
--- NOTE | 2017-03-07 07:20 | NUR ---
PT AWAKE AND ALERT. SPEECH IS GARBLED. REPORTS NO PAIN AT THIS TIME. BREATHS ARE SHALLOW. BREATH SOUNDS CLEAR, DIMINISHED ON LOWER LOBES. BS ACTIVE X 4. UROSTOMY BAG ON RIGHT LOWER QUADRANT DRAINING DARK CONCENTRATED URINE. RIGHT ARM STILL WEAPING. SKIN IS WARM TO THE THOUCH. BRUISING ON BOTH ARMS. R-JUGULAR TRIALISYS CATH WITH AMIODORE INFUSING AT 0.5MG/MIN. D5W 1/2 NS KVO. TPN INFUSING AT 40ML/HR. HEART RATE 89 CONTROLLED A-FIB. ON O2 AT 7L VIA OXYMIZER WITH O2 SAT 97%, RR 18. SCD'S IN PLACE. PT ON AN OVERLAY MATTRESS. REDNESS ON BUTTOCKS AND UPPER BACK STILL PRESENT. BED LOW POSITION, CALL LIGHT IN REACH. SIDE RAILS UP X 2. NO OTHER NEEDS AT THIS TIME. WILL CONTINUE TO MONITOR.
--- NOTE | 2017-03-07 09:57 | NUR ---
PT ON DIALYSIS AT THIS TIME. PT PULLED UP AND REPOSITIONED. BP 93/57 MAP 62. O2 SAT 91% ON 10L VIA OXYMYZER. RT INCREASED IT TO 10 DUE TO O2 SAT DROP INTO UPPER 80S. WILL CONTINUE TO MONITOR.
--- NOTE | 2017-03-07 12:36 | OP ---
PATIENT NAME: LAWSON LA MEDICAL RECORD: [id number] :36 LOCATION:D.ICU [id number].2305 ADMISSION DATE:02/26/17 SURGEON: FAISAL AGUIRRE MD DATE OF OPERATION: 03/01/2017 PREOPERATIVE DIAGNOSES: 1. Acute renal failure. 2. Acute diverticulitis. 3. Urinary tract infection. 4. History of ileal conduit secondary to bladder cancer. POSTOPERATIVE DIAGNOSES: 1. Acute renal failure. 2. Acute diverticulitis. 3. Urinary tract infection. 4. History of ileal conduit secondary to bladder cancer. PROCEDURE: Right IJ 12.5-cm Trialysis catheter placement. SURGEON: Faisal Aguirre MD REPORT OF PROCEDURE: The patient's right neck was prepped and draped in sterile fashion. A 5 mL of 1% lidocaine was infused into the surrounding tissues. Using ultrasound guidance, a needle was used to cannulate the right internal jugular vein. The guidewire was advanced with ease. Over this wire, a dilator was placed, followed by the Trialysis catheter. The catheter aspirated nonpulsatile dark blood and flushed easily in all 3 ports. This was sutured into place with 4-0 nylons and dressed appropriately. COMPLICATIONS: None. CONDITION: Stable. ANESTHESIA: Local. BLOOD LOSS: Minimal. Procedure was done in the ICU at the bedside. TRANSINT:[id number] Voice Confirmation ID: [id number] DOCUMENT ID: [id number] FAISAL AGUIRRE MD at 1236 CC: [id number] DICTATION DATE: 03/01/17917 WEB UI SOFTWARE ENGINEER: 03/01/17 0947 ADM IN [place] [id number] [place] [address]
--- NOTE | 2017-03-07 12:55 | NUR ---
SPOKE WITH DR. MALONEY REGARDING PT'S INCREASE IN OXYGEN NEED FROM 7L TO 14L. ORDERED TO CONSULT DR. KAPLAN. SAID TO HOLD OFF ON CT WITH CONTRAST. DR. KAPLAN ORDERED BRONCOSCOPY.
--- NOTE | 2017-03-07 13:37 | NUR ---
NOTIFIED DR. AGUIRRE ABOUT CONDITION OF PATIENT. AND NOTIFIED HIM THAT DR. KAPLAN HAD ORDER FOR US TO HOLD OFF ON CT WITH CONTRAST.
--- NOTE | 2017-03-07 13:41 | NUR ---
BROSCOSCOPY CONSENT FORMS SIGNED.
--- NOTE | 2017-03-07 13:57 | NUR ---
BROSCOSCOPY COMPLETED BY DR. TINAJERO. 1MG OF VERSED GIVEN FOR PROCEDURE.
--- NOTE | 2017-03-07 14:16 | NUR ---
SPOKE WITH DR. AGUIRRE. HE ORDER NG TUBE PLACEMENT TO PREVENT ASPIRATION WITH CONTRAST THAT PT NEEDS TO TAKE BY MOUTH FOR CT WITH CONTRAST PROCEDURE.
--- NOTE | 2017-03-07 15:10 | NUR ---
16 TURKMEN NG TUBE PLACED IN RIGHT NARE. SECURED TO NOSE. PLACEMENT CHECKED WITH STETHESCOPE AND GREEN GASTRIC CONTENT NOTED. PT TOLERATED WELL. CONTRAST FOR CT GIVEN TRHOUGH TUBE. WILL CONTINUE TO MONITOR.
--- NOTE | 2017-03-07 16:47 | NUR ---
PT TRANSPORTED TO IMAGING FOR CT SCAN. PT TOLERATED WELL. WILL CONTINUE TO MONITOR.
--- NOTE | 2017-03-07 19:40 | NUR ---
PT AWAKE AND ALERT, CONFUSED AND UNABLE TO FOLLOW COMMANDS OR ANSWER QUESTIONS. LUNG SOUNDS DIMINISHED, ORAL CARE ADM, ORAL SXN PROVIDED. HR IRREGULAR, PERIPHERAL PULSES PRESENT. BOWEL SOUNDS HYPOACTIVE IN ALL QUADRANTS. UROSTOMY PRESENT AND INTACT. MINIMAL DRAINAGE NOTED. WEEPING EDEMA TO UPPER EXTR. PT REPOSITIONED IN BED WITH PROMINENCES BRIDGED AND PARTIAL LINEN CHANGE. ROOM VISIBLE FROM NURSES STATION. CPOC.
--- NOTE | 2017-03-07 20:00 | NUR ---
NO VISITORS AT THIS TIME. PT RESTING QUIETLY. CPOC.
--- NOTE | 2017-03-07 21:30 | NUR ---
SPO2 TRENDING DOWN. BIPAP PLACED @ 40%, WITH SPO2 NOW INCREASING TO 96%. WILL CONTINUE TO MONITOR.
[2017-03-08] VITALS (20 sets, daily range): BP systolic 84–133; BP diastolic 41–88
--- NOTE | 2017-03-08 01:30 | NUR ---
ORAL CARE ADM, SXN PROVIDED. THICK, WHITE ORAL SECRETIONS PRESENT. BIPAP PLACED BACK ON AT 40%. WILL CONTINUE TO MONITOR.
--- NOTE | 2017-03-08 03:40 | NUR ---
PT AHD LARGE LIQUID BM. COMPLETE LINEN CHANGE AND BATH GIVEN. VSS, BIPAP ON @ 40%. PT REMAINS CONFUSED AND UNABLE TO FOLLOW COMMANDS. ROOM VISIBLE FROM NURSES STATION. CPOC.
[2017-03-08 04:52] LABS: BASOPHILS 0 % (0-2); EOSINOPHILS 0.1 % (0-7); HEMATOCRIT 26.9 % (42.0-54.0); IMMATURE GRANULOCYTES 1.2 % (0-5); MCH 30.7 pg (26.0-34.0); MCHC 33.5 g/dL (31.0-37.0); MCV 91.8 fL (80.0-100.0); MEAN PLATELET VOLUME 11.9 fL (7.4-10.4); MONOCYTES 3.5 % (2-11); NEUTROPHILS 93.2 % (40-80); PLATELET COUNT 78 10x3/uL (130-400); RBC 2.93 10x6/uL (4.20-6.10); RDW 16.3 % (11.5-14.5); WBC 19.7 10x3/uL (4.8-10.8)
[2017-03-08 05:03] LABS: APTT 37.4 SECONDS (22.8-39.4); INR 1.24 (0.85-1.17); PROTIME 15.5 SECONDS (11.6-15.0)
[2017-03-08 05:04] LABS: D-DIMER-QUANTITATIVE 2.24 ug/mLFEU (0.20-0.54)
[2017-03-08 05:15] LABS: ALBUMIN 1.4 g/dL (3.4-5.0); ANION GAP 15.1 mmol/L (8-16); BILIRUBIN - TOTAL 0.34 mg/dL (0.2-1.3); CALCIUM 7.8 mg/dL (8.5-10.1); CARBON DIOXIDE 26.9 mmol/L (21.0-32.0); CREATININE - SERUM 3.4 mg/dL (0.6-1.3); MAGNESIUM - SERUM 1.7 mg/dL (1.8-2.4); PHOSPHOROUS 4.4 mg/dL (2.5-4.9); PROTEIN - SERUM 4.4 g/dL (6.4-8.2)
--- NOTE | 2017-03-08 06:08 | NUR ---
PT RESTING COMFORTABLY AT THIS TIME. PT ALLOWED TO CONTINUE SLEEPING UNDISTURBED.
--- NOTE | 2017-03-08 09:28 | NUR ---
AWAKES EAsily to verbal stimuli opens eyes, hand order builder loader equal and weak. on bi pap mask. tolerating fair. repositioned patient hands shake during assessment. abd soft ng tube clamped. urostomy draining dark redish brown liquid. small amount. abd soft bilateral lung sounds very diminished. scd on lower legs. monitor atrial fib. family here questions answered.
--- NOTE | 2017-03-08 14:19 | NUR ---
TWO LARGE LIQUID BROWN STOOLS SO FAR TODAY. ALERT RIGHT NOW DENIES ANY PAIN, BUT DOES MOAN WHEN MOVED. REFUSED A SHAVE. UROSTOMY INCTACT WITH DARK RED DRAINAGE. COCCYX AREA LARGE BRUISES WITH SAME 1 CM OPEN AREA. CALMASEPTIN APPLIED WITH EACH STOOL.
--- NOTE | 2017-03-08 15:05 | NUR ---
dr. santos here long talk with family 2 daughters and son. Hospice consult ordered. restart dilaudid. patient is a DNR. famiy tearful emtional support provided.
--- NOTE | 2017-03-08 16:25 | NUR ---
FAMILY AT BEDSIDE. SUCTION ORALLY. THICK PALE YELLOW SPUTUM. DILAUDID 0.5 MG IV GIVEN FOR MOANING. PATIENT REMOVING OXYGEN AND NOT WANTING IT REPLACED.
--- NOTE | 2017-03-08 16:41 | NUR ---
LATE ENTRY 1505 CM RECEIVED A TELEPHONE CALL FROM EDDIE, ICU HR CONSULTANT, REGARDING GIP HOSPICE EVALUATION. PATIENT'S FAMILY HAD SPOKEN WITH DR OWEN THIS AFTERNOON REGARDING PROGNOSIS, DNR STATUS AND HOSPICE CONSULT WAS ORDERED. CLINICAL REVIEWED. TC TO [facility] AND RECEIVED CB FROM OMAR, THE ON-CALL NURSE. PACKET WITH CLINICAL INFORMATION AND FACE SHEET PREPARED. FAMILY REMAINS ON SITE AWAITING THE [facility] ECOMMERCE ANALYST.
--- NOTE | 2017-03-08 17:29 | NUR ---
hospice nurse here talked with family. the family do desire hospice services. patient repositioned on back. small liquid brown stool.still moans when repositioned. suction orally
[2017-03-09 09:08] LABS: AFB SPECIMEN PROCESSING Concentration (())
[2017-03-12 10:20] LABS: FUNGUS STAIN Final report (())
[2017-03-21 16:13] LABS: FUNGUS CULTURE RESULT 1 Candida albicans (())
[2017-04-07 13:12] LABS: FUNGUS MYCOLOGY CULTURE Final report (())
[2017-04-25 11:18] LABS: ACID FAST CULTURE Negative (()); ACID FAST SMEAR Negative (())
--- NOTE | 2017-06-24 08:09 | DS ---
PATIENT:LAWSON LA :37 MEDICAL RECORD: [id number] DISCHARGE SUMMARY ADMISSION DATE: 02/26/17 DISCHARGE DATE: 03/08/17 ADMISSION DIAGNOSES: Sepsis, leukocytosis, bladder cancer, prostate cancer, rheumatoid arthritis, gastroesophageal reflux disease, atrial fibrillation, hypertension. DISCHARGE DIAGNOSES: Sepsis, renal failure requiring hemodialysis, multisystem failure. HOSPITAL COURSE: The patient had a protracted hospital course in the ICU, continued to deteriorate. Family elected to pursue hospice, palliative care. The patient discharged to hospice. See chart for details of this complex case. Agree with assessment and plan by all consults. TRANSINT:[id number] Voice Confirmation ID: [id number] DOCUMENT ID: [id number] ELADIA LARKIN DO at 0809 CC: [id number] DICTATION DATE: 06/21/17 1444 AIRCRAFT STRESS ANALYST: 06/22/17 0932 DIS IN 03/08/17 [id number] [place] [address]
== END 2017-03-08 20:04 | disposition hospice, inpatient (51) | DRG 871 ==
LOC: D.ICU 11:50 → D.MS 11:50 → D.ICU 02-28 12:23
PROVIDERS: Family Medicine; Internal Medicine Nephrology; Internal Medicine Pulmonary Disease; ADMIT Family Medicine
PROC: 05HM33Z Insertion of Infusion Device into Right Internal Jugular Vein, Percutaneous Approach (ICD-10-PCS; 2017-03-01)
PROC: 5A1D70Z Performance of Urinary Filtration, Intermittent, Less than 6 Hours Per Day (ICD-10-PCS; 2017-03-03)
PROC: 0B978ZX Drainage of Left Main Bronchus, Via Natural or Artificial Opening Endoscopic, Diagnostic (ICD-10-PCS; principal; 2017-03-07)
PROC: 0B998ZX Drainage of Lingula Bronchus, Via Natural or Artificial Opening Endoscopic, Diagnostic (ICD-10-PCS; 2017-03-07)
PROC: 0B988ZX Drainage of Left Upper Lobe Bronchus, Via Natural or Artificial Opening Endoscopic, Diagnostic (ICD-10-PCS; 2017-03-07)
PROC: 0B9B8ZX Drainage of Left Lower Lobe Bronchus, Via Natural or Artificial Opening Endoscopic, Diagnostic (ICD-10-PCS; 2017-03-07)
DX: A41.9 Sepsis, unspecified organism (principal); N17.0 Acute kidney failure with tubular necrosis; G93.41 Metabolic encephalopathy; J18.9 Pneumonia, unspecified organism; K57.20 Diverticulitis of large intestine with perforation and abscess without bleeding; N39.0 Urinary tract infection, site not specified; E87.2 Acidosis; B37.0 Candidal stomatitis; I48.92 Unspecified atrial flutter; T17.590A Other foreign object in bronchus causing asphyxiation, initial encounter; J98.11 Atelectasis; J90 Pleural effusion, not elsewhere classified; G72.81 Critical illness myopathy; E46 Unspecified protein-calorie malnutrition; Z66 Do not resuscitate; I48.91 Unspecified atrial fibrillation; Z87.440 Personal history of urinary (tract) infections; Z85.51 Personal history of malignant neoplasm of bladder; E87.6 Hypokalemia; D69.6 Thrombocytopenia, unspecified; R19.7 Diarrhea, unspecified; Z68.21 Body mass index [BMI] 21.0-21.9, adult

== ENCOUNTER 2017-03-08 19:01 | Inpatient (IN) | payer OTHER ==
[2017-03-08 19:00] VITALS: BP 141/100
[~2017-03-08 19:01] MED LIST changes: +VITAMIN D2000 UNIT PO
[2017-03-08 20:07] VITALS: BP 114/82; BMI 28.9
--- NOTE | 2017-03-08 22:09 | NUR ---
RECEIVED FROM ICU, STARTED PT ON RESIDENTIAL DIRECT SUPPORT PROFESSIONAL MORPHINE PUMP 0.5 CONT. FAMILY AT BEDSIDE, WILL CONTINUE COMFORT CARE
--- NOTE | 2017-03-09 00:24 | NUR ---
PT SLEEPING, 02-5L, PT ON PARTS FABRICATOR PUMP, BED IS LOW, SRX2, CALL LIGHT IN REACH, FAMILY AT BEDSIDE, WILL CONTINUE PLAN OF CARE
--- NOTE | 2017-03-09 01:23 | NUR ---
CHECK IN ON PT , PT EYES WERE OPEN, WAS A LITTLE RESPONSIVE. FAMILY AT BEDSIDE
--- NOTE | 2017-03-09 07:45 | NUR ---
INTRODUCED MYSELF TO PT BUT HE IS NOT RESPONSIVE. PT AWAKE WITH EYE OPEN BUT CANT FOLLOW COMMANDS OR TALK. PT IS COMFORT CARE ONLY ON HOSPICE AND FAMILY IS AROUND BED. FOCUSED ASSESSMENT PERFORMED ONLY R/T PT BEING COMFORT CARE ONLY AND FAMILY NOT WANTING HIM TURNED A LOT AND MADE UNCOMFORTABLE. 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 ACCOUNT ADMINISTRATOR PUMP IN PLACE WITH MORPHINE 0.5MG CONTINUOUSLY ALONG WITH PRN BOLUS PROGRAMMED. PT HAS UROSTOMY IN PLACE BUT NO DRAINAGE. PTS BILAT ARMS ARE SWOLLEN AND HAVE WEEPING EDEMA, LINENS CURRENTLY CLEAN AND DRY. PT IS ON/OFF FALLING ASLEEP BUT JERKS AWAKE RANDOMLY AND OFTEN, TEACHING PROVIDED TO FAMILY ABOUT PAIN MANAGEMENT AND PRN MEDS FOR PT TO STAY COMFORTABLE AND PAIN FREE. FAMILY VERBALIZED UNDERSTANDING AND DENY ANY CURRENT NEEDS AT THIS TIME. NC @5L IN PLACE AND SATURATION LOW BUT FAMILY OKAY WITH THIS AND DONT WANT ANY FURTHER MEASURES DONE. CL IN REACH FOR FAMILY. WILL CPOC.
[2017-03-09 08:00] VITALS: BP 71/40
--- NOTE | 2017-03-09 10:18 | NUR ---
HOSPICE NURSE HERE AND INQUIRING ABOUT PTS STATUS. WRITTEN ORDERS CHECKED AND PTS PAIN MATERIAL WORKER WAS ENTERED WRONG PTS SUPPOSED TO HAVE BOLUS Q1 NOT Q2 PRN, ADJUSTMENTS MADE AND MEDICATON ORDERS CORRECTED AND I DISCUSSED WITH FAMILY THAT HE CAN HAVE IT EVERY HOUR IF NEEDED. PT STILL AWAKE WITH EYES WIDE OPEN BUT PT SEEMS COMFORTABLE NOT MOANING OR FIDGETING A LOT. WILL CPOC AND COMFORT MEASURES.
--- NOTE | 2017-03-09 10:54 | NUR ---
CHANGED OUT GOWN AND BLANKETS FROM PTS R.ARM WEEPING EDEMA. PROVIDED PT WITH PRN ATIVAN FOR BODY JERKING AND PER FAMILYS REQUEST OF HIM APPEARING AGITATION. WILL CPOC.
--- NOTE | 2017-03-09 13:14 | NUR ---
PT RESTING QUIETLY WITH EYES CLOSED. FAMILY STATES HES BEEN RESTING WITHOUT FIDGETING FOR ABOUT AN HOUR AND DOING WELL. NO CURRENT NEEDS. WILL CPOC.
--- NOTE | 2017-03-09 16:00 | NUR ---
PT RESTING WITHOUT ANY CHANGES NOTED. FAMILY SURROUNDING BED AND STATES HE APPEARS COMFORTABLE STILL. NO NEEDS AT THIS TIME. WILL CPOC.
[2017-03-09 16:34] VITALS: BP 71/32
--- NOTE | 2017-03-09 16:35 | NUR ---
FAMILY REQUESTING PTS PRN ATIVAN FOR JERKING BODY MOVEMENTS. PROVIDED PT WITH IT. FAMILY REQUESTED PTS VITALS BE TAKEN AND PTS PULSE OX IS UP TO 99% NOW THAT HE IS RESTING QUIETLY AND BEING STILL. RR NONLABORED. BP STILL HYPOTENSIVE AT 71/32 WITH HR TACHY AT 113. FAMILY VOICED THANKS AND DENIES ANY FURTHER NEEDS AT THIS TIME. WILL COMFORT CARE.
--- NOTE | 2017-03-09 18:34 | NUR ---
COMPLETE BED CHANGE DONE R/T WEEPING EDEMA SOILAGE. PT APPEARS TO BE COMFORTABLE AND IS RESTING QUIETLY IN BED WITH FAMILY SURROUNDING. NO CURRENT NEEDS NOTED. WILL CPOC.
--- NOTE | 2017-03-09 19:20 | NUR ---
RECEIVED REPORT, WILL ASSUME CARE OF PT, NO DISTRESS NOTICED AT THIS TIME, FAMILY AT BED SIDE DENIES ANY NEEDS AT THIS TIME, BED IS LOW, SR2, CALL LIGHT IN REACH, WILL CONTINUE PLAN OF CARE
[2017-03-09 20:26] VITALS: BP 71/37
--- NOTE | 2017-03-10 03:58 | NUR ---
ASSESSMENT COMPLETE, SEE FLOWSHEET, PT SHOW NO SIGNS OF DISTRESS, BED IS LOW, SR2, CALL LIGHT IN REACH, DAUGHTER AND SON IN LAW AT BED SIDE, WILL CONTINUE PLAN OF CARE
[2017-03-10 08:00] VITALS: BP 149/86
--- NOTE | 2017-03-10 10:00 | NUR ---
BED BATH AND LINEN CHANGE. FAMILY AT BEDSIDE. RESTLESS IN BED. BOLUS ADMINISTERED PER DR. ORDER OF MORPHINE HEATING TECHNICIAN. ARMS ELEVATED ON PILLOWS BILATERALLY. BP-86/34. CONTINUE PLAN OF CARE AND SAFETY PRECAUTIONS.
--- NOTE | 2017-03-10 17:22 | NUR ---
LETHARGIC. FAMILY AT BEDSIDE. HOSPICE NURSE IN ROOM. SLEEPING COMFORTABLY IN BED. MORPHINE DRUM REEL CUTTER CONTINUED PER PROTOCOL. CONTINUE PLAN OF CARE. BED LOCKED AND LOW. CALL LIGHT IN REACH.
--- NOTE | 2017-03-10 19:29 | NUR ---
RECEIVED REPORT, WILL ASSUME CARE OF PT, BED IS LOW, SR2, CALL LIGHT IN REACH, SCD ARE ON, WILL CONTINUE PLAN OF CARE
[2017-03-10 20:55] VITALS: BP 70/51
--- NOTE | 2017-03-11 02:27 | NUR ---
PT ASLEEP. RESPIRATIONS EVEN AND UNLABORED. SCD'S ON BILATERAL LOWER EXTREM. PT HAS A SPECIALTY BED., FAMILY AT BEDSIDE. O2 5L NC. NS INFUSING AT 30 WITH A METAL ROOFING MECHANIC PUMP CONTAINING MORPHINE TO RIGHT IJ. PT HAS NO S/S OF DISTRESS. BED LOW AND CALL LIGHT IN REACH. WILL CPOC
--- NOTE | 2017-03-11 03:19 | NUR ---
ASSESSMENT COMPLETE, SEE FLOWSHEET, BED IS LOW, SR2, SCD ARE ON, FAMILY AT BEDSIDE, WILL CONTINUE PLAN OF CARE
--- NOTE | 2017-03-11 08:03 | NUR ---
AM ROUNDS - PT IS IN BED AT THIS TIME WITH FAMILY AT BEDSIDE. O2 AT 5L VIA NC. RIGHT IJ, NS AT 30 CC/HR AND MORPHINE CORPORATE STRATEGIST. PT IS ON CONTACT ISOLATION. PT IS ON HOSPICE. BED AT LOWEST POSITION. SIDE RAILS UP X2. WILL CONTINUE TO MONITOR
[2017-03-11 08:13] VITALS: BP 67/37
--- NOTE | 2017-03-11 13:53 | NUR ---
PT IN BED WITH FAMILYAT BEDSIDE. NO NEEDS AT THIS TIME. WILL CONTINUE TO MONITOR
--- NOTE | 2017-03-11 15:44 | NUR ---
1538 MINERAL SURVEYOR CALLED ME INTO ROOM AND STATES SHE THINKS THAT PT HAS . LISTEN FOR HEART SOUNDS. NO HEART SOUNDS HEARD AND PT IS NOT BREATHING. BRYANNA GARCIA, TABLE KEEPER. CHARGE NURSE NOTIFIED. 154 HOSPICE NOTIFIED. FAMILY AT BEDSIDE.
--- NOTE | 2017-03-11 17:58 | NUR ---
[facility] ARRIVED FOR BODY. BODY LEFT WITH HOME STAFF. PAPERWORK SIGNED ADN COPY GIVEN TO HOME STAFF AND ORIGINAL PLACED IN CHART. WILL D/C
== END 2017-03-11 18:08 | DRG 951 ==
LOC: D.M2 19:01 → D.ICU 19:01 → D.M2 19:53
PROVIDERS: ADMIT Legal Medicine
DX: Z51.5 Encounter for palliative care (principal)